=== PATIENT | male | born 1965 | race Caucasian/White ===

== ENCOUNTER 2021-11-17 14:43 | Inpatient (IN) ==
[2021-11-17] MEDS ORDERED: VANCOMYCIN HCL 1,500 MG in SODIUM CHLORIDE 0.9% 500 ML IV STA (15:12)
[2021-11-17] MEDS ORDERED: VANCOMYCIN CONSULT ACTIVE PRN (15:12)
--- NOTE | 2021-11-17 15:18 | Emergency Department Note ---
History of Present Illness General Chief complaint: Infection Stated complaint: INFECTION IN LEFT FOOT,REF BY DOC Time Seen by Provider: 11/17/21 15:08 Source: patient History of Present Illness 56-year-old male presents emergency department referred by Dr. Hall for admission for a operation to his left foot this evening. Reportedly the patient has been dealing with a foot infection was recently at [facility]. Patient is currently on Keflex. Patient was seen in Dr. Hall's office and sent for admission for surgery this evening. Patient has no other complaints at this time Home Medications Medication Instructions Recorded Confirmed Type benazepril 10 mg tablet 10 mg PO DAILY 11/17/21 11/17/21 History cephalexin 500 mg capsule 500 mg PO QID 11/17/21 11/17/21 History insulin aspart U-100 100 unit/mL 7 unit SUBCUT TID 11/17/21 11/17/21 History (3 mL) subcutaneous pen liraglutide 0.6 mg/0.1 mL (18 mg/3 1.2 mg SUBCUT DAILY 11/17/21 11/17/21 History mL) subcutaneous pen injector (ArQuletoza 2-Ozzy) Allergies Allergy/AdvReac Type Severity Reaction Status Date / Time amoxicillin [From Augmentin] Allergy Intermediate face Verified 11/17/21 15:16 swelling atorvastatin [From Lipitor] Allergy Intermediate Rash Verified 11/17/21 15:16 clavulanic acid Allergy Intermediate face Verified 11/17/21 15:16 [From Augmentin] swelling empagliflozin Allergy Intermediate Rash Verified 11/17/21 15:16 [From Jardiance] latex Allergy Mild Rash Verified 11/17/21 15:16 ciprofloxacin [From Cipro] AdvReac Severe Gastrointestinal Verified 11/17/21 15:16 Upset aspirin AdvReac Intermediate epistaxis Verified 11/17/21 15:16 Past Med/Surg History Social History Smoking Status: Never smoker Preferred Language: Greenlandic Feels Safe at Home: Yes Immunizations: Past medical history diabetes, 6 BKA, left transmet, osteomyelitis, foot infection Review of Systems A total of 10 systems reviewed and were otherwise negative Constitutional: no fever Respiratory: no cough Musculoskeletal: + joint pain Physical Exam Vital Signs Vital Signs - 24 hr 11/17/21 14:50 11/17/21 15:12 Temperature 37.1 C Temperature Source Temporal Artery Scan Pulse Rate 83 Pulse Rate [Right Finger] 80 Pulse Rhythm [Right Finger] Regular Pulse Strength [Right Finger] Normal Respiratory Rate 18 16 Respiratory Effort / Characteristics Non-Labored Respiratory Depth Normal Respiratory Pattern Regular Blood Pressure 144/84 H Blood Pressure [Right Arm] 141/85 H Blood Pressure Mean 104 Blood Pressure Mean [Right Arm] 103 Blood Pressure Position Sitting Blood Pressure Position [Right Arm] Lying Pulse Oximetry 96 97 Oxygen Delivery Method Room Air Room Air Sepsis Recent Fever Within 48 Hours No Sepsis New/Unexplained Change in Mental Status No Sepsis Action Taken by Nursing No Action Required VITAL SIGNS - Vital signs and nursing notes were reviewed. GENERAL -56-year-old male appearing his stated age who is in no acute distress. Communicates well with provider and answers questions appropriately. SKIN - Without rashes. HEAD - NC/AT. EYES - PERRL with EOMI bilaterally. Sclera anicteric. Palpebral conjunctiva pink and moist with no injection noted. EARS - No deformities of external structures noted on gross examination bilaterally. NOSE - Midline and without cyanosis. No epistaxis or purulent drainage noted. Septum midline without deviation or septal hematoma noted. MOUTH/OROPHARYNX - Without perioral cyanosis. Buccal mucosa pink and moist . Tongue midline with equal elevation of palate bilaterally. No tonsillar hypertrophy, erythema, or exudates noted. NECK - Neck with FROM. Supple to palpation. LUNGS - Chest wall symmetric without accessory muscle use, intercostals retractions, or central cyanosis. Normal vesicular breath sounds CTA B/L. No wheezes, rales, or rhonchi appreciated. CARDIAC - RRR with S1/S2. No murmur, rubs, or gallops appreciated. ABDOMEN - Abdominal contour soft without pulsations or visible masses. BS normoactive all four quadrants. No tenderness, palpable masses, hepatosplenomegaly, or ascites noted. Back -kyphotic EXTREMITIES - No clubbing or peripheral cyanosis. Patient has a right BKA, patient has a left lower extremity at the foot that appears to have a transmet that is currently wrapped with a weeping bandage NEUROLOGIC - Cranial nerves II through XII grossly intact. Sensory intact to light touch throughout. Patellar reflexes +2/4. PSYCH - A&Ox3 and cooperates fully with examiner. Pt is very pleasant and interacts well with examiner. Course Reevaluation(s) Reevaluation #1: Patient on reexamination at 1645 was resting in no distress, patient was started on IV vancomycin, the case was discussed with [facility] hospitalist at 1705 for admission Administered Medications Vancomycin HCl 1,500 mg/ (Sodium Chloride) 530 mls @ 200 mls/hr IV NOW STA Stop: 11/17/21 17:41 Last Admin: 11/17/21 16:45 Dose: 200 mls/hr Documented by: [id number] Medical Decision Making Medical Records Attestation: I reviewed the patient's medical records. Home Medications Current Medication List: was personally reviewed by me Laboratory Data Attestation: I reviewed the patient's lab results. Result diagrams: 11/17/21 16:18 11/17/21 16:18 Lab Results 11/17/21 11/17/21 11/17/21 Range/Units 16:18 16:18 16:18 WBC 7.62 (4.8-10.8) K/uL RBC 5.33 (4.7-6.1) M/uL Hgb 15.6 (14.0-18.0) g/dL Hct 46.2 (42-52) % MCV 86.7 (80-100) fL MCH 29.3 (25-34) pg MCHC 33.8 (32-36) g/dL RDW Std Deviation 41.9 (36.4-46.3) fL RDW Coeff of Virgilio 13.1 (11.5-14.5) % Plt Count 366 (130-400) K/uL MPV 9.9 (7.4-10.4) fL Immature Gran % (Auto) 0.5 % Neut % (Auto) 64.4 % Lymph % (Auto) 23.4 % Bent % (Auto) 8.9 % Eos % (Auto) 2.5 % Baso % (Auto) 0.3 % Neut # (Auto) 4.91 (1.4-6.5) K/uL Lymph # (Auto) 1.78 (1.2-3.4) K/uL Bent # (Auto) 0.68 H (0.11-0.59) K/uL Eos # (Auto) 0.19 (0-0.5) K/uL Baso # (Auto) 0.02 (0-0.2) K/uL Immature Gran # (Auto) 0.04 H (0.00-0.02) K/uL PT 10.8 (9.0-12.0) Seconds INR 1.0 (0.9-1.1) APTT 34.3 H (21.0-31.0) Seconds PTT Ratio 1.2 Sodium 132 L (136-145) mmol/L Potassium 4.8 (3.5-5.1) mmol/L Chloride 99 (98-107) mmol/L Carbon Dioxide 25 (21-32) mmol/L Anion Gap 8 (3-11) BUN 22 (6-23) mg/dl Creatinine 0.81 (0.6-1.4) mg/dl Est Cr Clr Drug Dosing 124.6 ml/min Est GFR ( Amer) 116.8 ml/min Est GFR (Non-Af Amer) 100.8 ml/min BUN/Creatinine Ratio 27.2 H (10-20) Glucose 340 H* (70-99(Fasting)) mg/dl Lactate (0.4-2.0) mmol/L Calcium 9.2 (8.5-10.1) mg/dl Magnesium 1.9 (1.7-2.4) mg/dl Total Bilirubin 0.5 (0.2-1.0) mg/dl AST 10 L (13-39) U/L ALT 7 (7-52) U/L Alkaline Phosphatase 92 (34-104) U/L Total Protein 7.5 (6.0-8.3) gm/dl Albumin 3.7 (3.4-5.0) gm/dl Globulin 3.8 (2.5-4.0) gm/dl Albumin/Globulin Ratio 1.0 (0.9-2) SARS-CoV-2, RNA, NAAT (NEGATIVE) 11/17/21 11/17/21 Range/Units 16:29 16:55 WBC (4.8-10.8) K/uL RBC (4.7-6.1) M/uL Hgb (14.0-18.0) g/dL Hct (42-52) % MCV (80-100) fL MCH (25-34) pg MCHC (32-36) g/dL RDW Std Deviation (36.4-46.3) fL RDW Coeff of Virgilio (11.5-14.5) % Plt Count (130-400) K/uL MPV (7.4-10.4) fL Immature Gran % (Auto) % Neut % (Auto) % Lymph % (Auto) % Bent % (Auto) % Eos % (Auto) % Baso % (Auto) % Neut # (Auto) (1.4-6.5) K/uL Lymph # (Auto) (1.2-3.4) K/uL Bent # (Auto) (0.11-0.59) K/uL Eos # (Auto) (0-0.5) K/uL Baso # (Auto) (0-0.2) K/uL Immature Gran # (Auto) (0.00-0.02) K/uL PT (9.0-12.0) Seconds INR (0.9-1.1) APTT (21.0-31.0) Seconds PTT Ratio Sodium (136-145) mmol/L Potassium (3.5-5.1) mmol/L Chloride (98-107) mmol/L Carbon Dioxide (21-32) mmol/L Anion Gap (3-11) BUN (6-23) mg/dl Creatinine (0.6-1.4) mg/dl Est Cr Clr Drug Dosing ml/min Est GFR ( Amer) ml/min Est GFR (Non-Af Amer) ml/min BUN/Creatinine Ratio (10-20) Glucose (70-99(Fasting)) mg/dl Lactate 1.4 (0.4-2.0) mmol/L Calcium (8.5-10.1) mg/dl Magnesium (1.7-2.4) mg/dl Total Bilirubin (0.2-1.0) mg/dl AST (13-39) U/L ALT (7-52) U/L Alkaline Phosphatase (34-104) U/L Total Protein (6.0-8.3) gm/dl Albumin (3.4-5.0) gm/dl Globulin (2.5-4.0) gm/dl Albumin/Globulin Ratio (0.9-2) SARS-CoV-2, RNA, NAAT NEGATIVE (NEGATIVE) Imaging Data Radiologist's Impression: Chest X-Ray 11/17/21 15:12 XR chest 1V portable HISTORY: 56 years-old Male SEPSIS acute sepsis COMPARISON: None TECHNIQUE: Portable AP view of the chest FINDINGS: The cardiomediastinal and hilar silhouettes are within normal limits. There is no pneumothorax, pleural effusion, airspace consolidation or overt pulmonary edema. The bones of the chest appear grossly intact. IMPRESSION: No acute process. ACT 112: Negative or not required by law. The above report was generated using voice recognition software. It may contain grammatical, syntax or spelling errors. Electronically signed by: Alonzo Martines M.D. 11/17/2021 4:43 PM ECG Data Attestation: I personally reviewed and interpreted this ECG as follows: Additional Comments: EKG interpreted by me normal sinus rhythm rate of 81 degree AV block no obvious ST segment elevation or depression normal intervals normal axis MDM Narrative Medical decision making differential diagnosis includes osteomyelitis, cellulitis, abscess, metabolic derangement. Plan is to check labs, IV antibiotics, admit Impression & Plan Diabetic infection of left foot, Acute hyperglycemia Discharge Plan Visit Data Chief Complaint: Infection Stated Complaint: INFECTION IN LEFT FOOT,REF BY DOC ED Provider: Trace Keller Discharge Problem: Diabetic infection of left foot, Acute hyperglycemia Patient Disposition: Being Evaluated by Hospitalist Forms Stand Alone Forms: My [facility] 3D Inspection Prescriptions Prescriptions: No Action benazepril 10 mg tablet 10 mg PO DAILY RF: 0 insulin aspart U-100 100 unit/mL (3 mL) insulin pen 7 unit SUBCUT TID RF: 0 Victoza 2-Ozzy 0.6 mg/0.1 mL (18 mg/3 mL) pen injector 1.2 mg SUBCUT DAILY RF: 0 cephalexin 500 mg capsule 500 mg PO QID RF: 0 Referrals Referrals: Sherman Waldron D.O. [Primary Care Provider] -
--- NOTE | 2021-11-17 16:45 | XRay Report ---
XR chest 1V portable HISTORY: 56 years-old Male SEPSIS acute sepsis COMPARISON: None TECHNIQUE: Portable AP view of the chest FINDINGS: The cardiomediastinal and hilar silhouettes are within normal limits. There is no pneumothorax, pleur al effusion, airspace consolidation or overt pulmonary edema. The bones of the chest appear grossly i ntact. IMPRESSION: No acute process. ACT 112: Negative or not required by law. The above report was generated using voice recognition software. It may contain grammatical, syntax o r spelling errors. Electronically signed by: Alonzo Martines M.D. 11/17/2021 4:43 PM
[2021-11-17 16:46] LABS: Basophils # (auto) 0.02 K/uL (0-0.2); Basophils % (auto) 0.3 %; Eosinophils # (auto) 0.19 K/uL (0-0.5); Eosinophils % (auto) 2.5 %; Hematocrit (blood only) 46.2 % (42-52); Hemoglobin 15.6 g/dL (14.0-18.0); Immature Granulocytes # (auto) 0.04 K/uL (0.00-0.02); Immature Granulocytes % (auto) 0.5 %; Lymphocytes # (auto) 1.78 K/uL (1.2-3.4); Lymphocytes % (auto) 23.4 %; Mean Corpuscular Hemoglobin 29.3 pg (25-34); Mean Corpuscular Hgb Conc 33.8 g/dL (32-36); Mean Corpuscular Volume 86.7 fL (80-100); Mean Platelet Volume 9.9 fL (7.4-10.4); Monocytes # (auto) 0.68 K/uL (0.11-0.59); Monocytes % (auto) 8.9 %; Neutrophils # (auto) 4.91 K/uL (1.4-6.5); Neutrophils % (auto) 64.4 %; Platelet Count 366 K/uL (130-400); RDW Coefficient of Variation 13.1 % (11.5-14.5); RDW Standard Deviation 41.9 fL (36.4-46.3); Red Blood Count 5.33 M/uL (4.7-6.1); White Blood Count 7.62 K/uL (4.8-10.8)
[2021-11-17 16:55] LABS: Partial Thromboplastin Ratio 1.2; Partial Thromboplastin Time 34.3 Seconds (21.0-31.0); Prothrombin Time 10.8 Seconds (9.0-12.0)
[2021-11-17 17:13] LABS: Albumin Level 3.7 gm/dl (3.4-5.0); BUN Creatinine Ratio 27.2 (10-20); Bilirubin,Total 0.5 mg/dl (0.2-1.0); Calcium 9.2 mg/dl (8.5-10.1); Creatinine Clr Calc Pharmacy 124.6 ml/min; Est GFR (African American) 116.8 ml/min; Est GFR (Non-African American) 100.8 ml/min; Globulin 3.8 gm/dl (2.5-4.0); Magnesium 1.9 mg/dl (1.7-2.4); Potassium 4.8 mmol/L (3.5-5.1); Total Protein 7.5 gm/dl (6.0-8.3)
[2021-11-17] MEDS ORDERED: ONDANSETRON INJ 2 MG/ML 2 ML VIAL ONE (17:18)
[2021-11-17] MEDS ORDERED: PROPOFOL IV EMULSION 10 MG/ML 20 ML VIAL IV ONE ×5 (17:18→19:08)
[2021-11-17] MEDS ORDERED: fentaNYL citrate 100 MCG/2 ML VIAL ONE (17:18)
[2021-11-17] MEDS ORDERED: NovoLIN-R INSULIN PER UNIT CHARGE IV STA (17:22)
--- NOTE | 2021-11-17 17:25 | History & Physical Report ---
Date of Service November 17, 2021 Assessment & Plan (1) Diabetic infection of left foot: Plan: Diabetic foot infection with osteo- Patient seen and previously treated at [facility]. Pending records. Reportedly was discharged on Keflex with continued worsening of his infection Worsening DFI with osteo-, allergies to Augmentin. Placed on Rocephin, Flagyl, and Vanco empirically. Anticipate operative intervention by podiatry today blood cultures pending No leukocytosis Hemoglobin 15.6 PLT 366 Sodium 132, glucose 340 in ER Lactate normal Creatinine 0.81, creatinine clearance 124 No transaminitis CRP 2.59 Covid negative Chest x-ray: No acute process Left foot x-ray: Prior forefoot amputation. Soft tissue ulcer of the lateral forefoot noted in conjunction with osteomyelitis involving cuboid and residual fourth metatarsal base. Patient was referred by Dr. Hall who is consulted for operative intervention anticipate intervention today (2) Diabetes mellitus type 2 with complications, uncontrolled: Plan: Type 2 diabetes mellitus On liraglutide and Takes lantus 18u + 7-10u aspart TID at home Hold home Victoza Basal bolus SSI. Basal 9 units Lantus bid, SSI CF 45, ratio 15 Glucose checks AC/at bedtime 5 units IV insulin given in ER for blood sugar over 400 while in ER. Patient about to be taken to the OR, OR nurse notified insulin given shortly before tr ansfer. (3) HLD (hyperlipidemia): Plan: - Continue crestor 40mg daily (4) HTN (hypertension): Plan: Hold Benzapril for interaction with anesthesia, may resume tomorrow hold for hypotension (5) Legal blindness of left eye, as defined in [place]: Plan: Congenital diminished acuity in left eye since , does react to light. No acute intervention for this. This is not due to diabetic retinopathy. Plan: DVT prophylaxis: SCDs, defer pharmacologic prophylaxis in anticipation of surgically Diet: N.p.o., then type II diabetic Disposition: Medical surgical CODE STATUS: DNR/DNI, confirmed with patient. Surrogate decision maker would be his History of Present Illness Primary Care Provider: Sherman Crys Waldron Chet is a 56-year-old male with a past medical history of diabetes who is been referred from podiatry Dr. Hall for admission for worsened left foot cellulitis with osteomyelitis which has not improved with antibiotic therapy and which is anticipated to need surgical revision. 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 In ER troponin is negative, chest x-ray is negative. "I have an infection in my foot. Dr. Hall seen me and wanted to come over so he could do some debridement of the bone." Infection started 2 weeks ago, seen in [facility] and d/c 4 days ago. He is not sure if they had a culture result, but was discharged on Keflex. After he was discharged did not notice any change in the foot. Did not have diabetic shoes available. No fevers, chills or sweats. Had gotten flushed with vanco and low grade fever in the past. none [employer]. No shortness of breath, no chest pain,or chest pressure. Hungry, no n ausea, no vomiting. Blind in L eye since . HTN on Benzepril. HLD: Crestor 40mg daily DM: Takes lantus 18u + 7-10u aspart TID A1C 9.9% in Sep 2021. Dr. Mindy Loera is normal ring facer. Medical History: Reviewed Medications: Reviewed Surgical History: Reviewed Allergies: Reviewed Social History: No tobacco product use in 16 years. Social alcohol on holidays. Recreational marijuana in the past, none recent. Uses CBD cream for arthritis. Code Status: Surrogate DM would be Mira. DNR/DNI. R BKA Mar 2007. Cataract sx, tonsillectomy. Allergies Allergy/AdvReac Type Severity Reaction Status Date / Time amoxicillin [From Augmentin] Allergy Intermediate face Verified 11/17/21 15:16 swelling atorvastatin [From Lipitor] Allergy Intermediate Rash Verified 11/17/21 15:16 clavulanic acid Allergy Intermediate face Verified 11/17/21 15:16 [From Augmentin] swelling empagliflozin Allergy Intermediate Rash Verified 11/17/21 15:16 [From Jardiance] latex Allergy Mild Rash Verified 11/17/21 15:16 ciprofloxacin [From Cipro] AdvReac Severe Gastrointestinal Verified 11/17/21 15:16 Upset aspirin AdvReac Intermediate epistaxis Verified 11/17/21 15:16 Home Medications Medication Instructions Recorded Confirmed Type benazepril 10 mg tablet 10 mg PO DAILY 11/17/21 11/17/21 History cephalexin 500 mg capsule 500 mg PO QID 11/17/21 11/17/21 History insulin aspart U-100 100 unit/mL 7 unit SUBCUT TID 11/17/21 11/17/21 History (3 mL) subcutaneous pen liraglutide 0.6 mg/0.1 mL (18 mg/3 1.2 mg SUBCUT DAILY 11/17/21 11/17/21 History mL) subcutaneous pen injector (Victoza 2-Ozzy) Past Med/Surg History Medical History (Updated 11/17/21 @ 17:56 by Oral Chauhan MD) Diabetes mellitus type 2 with complications, uncontrolled HLD (hyperlipidemia) HTN (hypertension) Legal blindness of left eye, as defined in [place] Surgical History History of tonsillectomy Social History Smoking Status: Never smoker Preferred Language: Romanian Feels Safe at Home: Yes Review of Systems 2 Review of Systems: All systems reviewed & are unremarkable except as noted in Subjective Physical Exam Physical Exam: General: A&Ox3. NAD. Cooperative. HEENT: Atraumatic, normocephalic. Vision intact in right eye, only able to perceive light and shadows and some color in left eye. Both pupils reactive to light. Hearing intact. Pulm: CTAB A&P. -wheezes, -rales, -rhonchi. Symmetrical chest rise. No increased work of breathing. No respiratory distress. Cardiac: RRR, -mrg. Radial pulses intact and symmetrical. Abdominal: Nontender, nondistended, soft. BS present. Ext: R BKA L metatarsal amp. L lateral ulceration, minimal erythema + purulence. Base surrounding edema. Sensation intact to soft touch in left ankle and below right knee. Blasting Entryman strength intact bilaterally. Sensation intact to soft touch in hands bilaterally. Results & Data Results & Data ([facility]) Vital Signs (Past 12 Hours) Vital Signs Temp Pulse Pulse Resp BP BP Pulse Ox 11/17/21 15:12 80 16 141/85 H 97 11/17/21 14:50 37.1 C 83 18 144/84 H 96 PG Care Time/CCT Total # of Minutes Spent Total Time Spent with Patient: Total time spent is greater than 50% in coordination of care (as documented) at patient's floor/unit and/or counseling patient: Coding Level of Care Code 79075 Initial Inpt Care Lvl 3 Diagnoses HLD (hyperlipidemia) E78.5 Diabetes mellitus type 2 with complications, uncontrolled HTN (hypertension) I10 Legal blindness of left eye, as defined in [place] H54.8 Diabetic infection of left foot E11.628; L08.9
--- NOTE | 2021-11-17 18:12 | Anesthesiology Consultation ---
Date of Service November 17, 2021 Assessment & Plan Chart Review Chart Review: Acceptable Risk for Surgery Consults Requested none History Surgery Operation Date: 11/17/21 18:05 Proposed Procedures p Incision and Drainage of Left Foot - Kleber Hall DPM, MS Height/Weight Height: 6 ft 3 in Weight: 97.7 kg Allergies Allergy/AdvReac Type Severity Reaction Status Date / Time amoxicillin [From Augmentin] Allergy Intermediate face Verified 11/17/21 15:16 swelling atorvastatin [From Lipitor] Allergy Intermediate Rash Verified 11/17/21 15:16 clavulanic acid Allergy Intermediate face Verified 11/17/21 15:16 [From Augmentin] swelling empagliflozin Allergy Intermediate Rash Verified 11/17/21 15:16 [From Jardiance] latex Allergy Mild Rash Verified 11/17/21 15:16 ciprofloxacin [From Cipro] AdvReac Severe Gastrointestinal Verified 11/17/21 15:16 Upset aspirin AdvReac Intermediate epistaxis Verified 11/17/21 15:16 Medications Home Medications Medication Instructions Recorded Confirmed Last Taken benazepril 10 mg tablet 10 mg PO DAILY 11/17/21 11/17/21 11/17/21 10:00 cephalexin 500 mg capsule 500 mg PO QID 11/17/21 11/17/21 11/17/21 10:00 1st dose of day insulin aspart U-100 100 unit/mL 7 - 10 unit SUBCUT TIDM 11/17/21 11/17/21 11/17/21 (3 mL) subcutaneous pen insulin glargine 100 unit/mL (3 18 unit SUBCUT DAILY 11/17/21 11/17/21 Unknown mL) subcutaneous pen (Lantus Solostar U-100 Insulin) liraglutide 0.6 mg/0.1 mL (18 mg/3 1.2 mg SUBCUT DAILY 11/17/21 11/17/21 10:00 mL) subcutaneous pen injector (Victoza 2-Ozzy) rosuvastatin 40 mg tablet (Crestor) 40 mg PO QAM 11/17/21 11/17/21 Unknown Past Medical History Medical History (Updated 11/17/21 @ 17:56 by Oral Chauhan MD) Diabetes mellitus type 2 with complications, uncontrolled HLD (hyperlipidemia) HTN (hypertension) Legal blindness of left eye, as defined in [place] Past Surgical History Surgical History History of tonsillectomy Social History Smoking Status: Never smoker Physical Exam Vital Signs Last Vital Signs Temp 37.0 C 11/17/21 17:51 Pulse 82 11/17/21 17:51 Resp 18 11/17/21 17:51 BP 145/81 H 11/17/21 17:51 Pulse Ox 98 11/17/21 17:51 Testing Laboratory Results 11/17/21 16:18 11/17/21 16:18 PT 10.8 Seconds (9.0-12.0) 11/17/21 16:18 INR 1.0 (0.9-1.1) 11/17/21 16:18 APTT 34.3 Seconds (21.0-31.0) H 11/17/21 16:18
[2021-11-17] MEDS ORDERED: fentaNYL citrate 100 MCG/2 ML VIAL IV PRN (18:18)
[2021-11-17] MEDS ORDERED: PROMETHAZINE HCL 12.5 MG in SODIUM CHLORIDE 0.9% 50 ML IV PRN (18:18)
[2021-11-17] MEDS ORDERED: HYDROmorphone INJ 2 MG/ML SYR/VIAL IV PRN (18:18)
[2021-11-17] MEDS ORDERED: ATROPINE SULFATE 0.1 MG/ML 10ML SYR IV PRN (18:18)
[2021-11-17] MEDS ORDERED: ePHEDrine sulfate 50 MG/ML AMP IV PRN (18:18)
[2021-11-17] MEDS ORDERED: ONDANSETRON INJ 2 MG/ML 2 ML VIAL IV PRN (18:18)
--- NOTE | 2021-11-17 18:33 | History & Physical Bridge Note ---
Date of Service November 17, 2021 History & Physical Bridge Note I have examined the patient, reviewed the History & Physical and in the interval since the performance of the History & Physical I have noted the following changes of clinical significance: no changes noted
[2021-11-17] MEDS ORDERED: MIDAZOLAM HCL 1 MG/ML 2ML VIAL ONE ×2 (18:43→19:07)
[2021-11-17] MEDS ORDERED: VANCOMYCIN HCL 1000MG/20ML VIAL ONE (19:04)
[2021-11-17] MEDS ORDERED: GENTAMICIN SULFATE 40 MG/ML 2 ML VIAL ONE (19:04)
--- NOTE | 2021-11-17 19:49 | Post Operative Brief Note ---
Immediate Post Op Note v1 Date of Surgery November 17, 2021 Pre & Post Diagnosis Operation Date: 11/17/21 18:05 Pre-Op Diagnosis: INFECTION IN LEFT FOOT,REF BY DOC I identified the patient and participated in the time-out.: Yes Procedure Operation Date: 11/17/21 18:05 Actual Procedures p Incision and Drainage of Left Foot - Kleber Hall DPM, MS Surgeon Kleber Hall DPM, MS Racing Board Marker None Estimated Blood Loss 5 Findings Consistent with Post-Op Diagnosis necrotic bone left foot
--- NOTE | 2021-11-17 19:51 | Surgery Consultation ---
Date of Consultation November 17, 2021 Assessment & Plan (1) Diabetic infection of left foot: Patient seen, evaluated and treated. I reviewed immediate OR wound debridement of non viable bone and soft tissue. Patient would benefit from Vascular consult and ID consult. Thank you for allowing me to participate in this Patient's care. History of Present Illness Attending Physician: Kleber Hall, SHAHIDAM, MS History of Present Illness Patient is a type II diabetic, 56-year-old male who was referred to be by [facility] orthopedics for attempted limb salvage. Patient has history of right BKA and worsening left foot cellulitis with osteomyelitis which has not improved with out patient antibiotic therapy. Allergies Allergy/AdvReac Type Severity Reaction Status Date / Time amoxicillin [From Augmentin] Allergy Intermediate face Verified 11/17/21 15:16 swelling atorvastatin [From Lipitor] Allergy Intermediate Rash Verified 11/17/21 15:16 clavulanic acid Allergy Intermediate face Verified 11/17/21 15:16 [From Augmentin] swelling empagliflozin Allergy Intermediate Rash Verified 11/17/21 15:16 [From Jardiance] latex Allergy Mild Rash Verified 11/17/21 15:16 ciprofloxacin [From Cipro] AdvReac Severe Gastrointestinal Verified 11/17/21 15:16 Upset aspirin AdvReac Intermediate epistaxis Verified 11/17/21 15:16 Home Medications Medication Instructions Recorded Confirmed Type benazepril 10 mg tablet 10 mg PO DAILY 11/17/21 11/17/21 History cephalexin 500 mg capsule 500 mg PO QID 11/17/21 11/17/21 History insulin aspart U-100 100 unit/mL 7 - 10 unit SUBCUT TIDM 11/17/21 11/17/21 History (3 mL) subcutaneous pen insulin glargine 100 unit/mL (3 18 unit SUBCUT DAILY 11/17/21 11/17/21 History mL) subcutaneous pen (Lantus Solostar U-100 Insulin) liraglutide 0.6 mg/0.1 mL (18 mg/3 1.2 mg SUBCUT DAILY 11/17/21 11/17/21 History mL) subcutaneous pen injector (Victoza 2-Ozzy) rosuvastatin 40 mg tablet (Crestor) 40 mg PO QAM 11/17/21 11/17/21 History Patient History Medical History (Updated 11/17/21 @ 17:56 by Oral Chauhan MD) Diabetes mellitus type 2 with complications, uncontrolled HLD (hyperlipidemia) HTN (hypertension) Legal blindness of left eye, as defined in [place] Surgical History History of tonsillectomy Social History Smoking Status: Never smoker Preferred Language: French Feels Safe at Home: Yes Physical Exam Physical Exam: General: A&Ox3. NAD. Cooperative. HEENT: Atraumatic, normocephalic. Vision intact in right eye, only able to perceive light and shadows and some color in left eye. Both pupils reactive to light. Hearing intact. Pulm: CTAB A&P. -wheezes, -rales, -rhonchi. Symmetrical chest rise. No increased work of breathing. No respiratory distress. Cardiac: RRR, -mrg. Radial pulses intact and symmetrical. Abdominal: Nontender, nondistended, soft. BS present. Ext: R BKA L metatarsal amp. L lateral ulceration, minimal erythema + purulence. Base surrounding edema. Sensation intact to soft touch in left ankle and below right knee. Mixer Tender strength intact bilaterally. Sensation intact to soft touch in hands bilaterally. Results & Data ([facility]) Vital Signs (Past 12 Hours) Vital Signs Temp Pulse Pulse Resp BP BP Pulse Ox 11/17/21 17:51 37.0 C 82 18 145/81 H 98 11/17/21 17:50 36.9 C 84 19 145/87 H 99 11/17/21 15:12 80 16 141/85 H 97 11/17/21 14:50 37.1 C 83 18 144/84 H 96 Diagnostic Findings Reviewed previous MRI read showing possible Left cubiod, 3rd metatarsal, 4th metatarsal, lateral calcaneus, Osteomyelitis. Possible septic tibiotalar and subtalar joints.
--- NOTE | 2021-11-17 20:14 | Anesthesiology Progress Note ---
Date of Service November 17, 2021 Anesthesia Post Procedure Vital Signs Vital Signs: Temp Pulse Pulse Pulse Resp BP BP 11/17/21 20:03 80 16 122/71 11/17/21 19:53 36.0 C L 75 18 120/85 11/17/21 17:51 37.0 C 82 18 145/81 H 11/17/21 17:50 36.9 C 84 19 145/87 H 11/17/21 15:12 80 16 141/85 H 11/17/21 14:50 37.1 C 83 18 144/84 H Pulse Ox 11/17/21 20:03 99 11/17/21 19:53 97 11/17/21 17:51 98 11/17/21 17:50 99 11/17/21 15:12 97 11/17/21 14:50 96 Transfer of Care Handoff Completed per policy Notes Mental Status: alert / awake / arousable and participated in evaluation Patient Amnestic to Procedure: Yes Nausea / Vomiting: adequately controlled Pain: adequately controlled Airway Patency, RR, SpO2: stable & adequate BP & HR: stable & adequate Hydration State: stable & adequate Anesthetic Complications: no major complications apparent
[2021-11-17] MEDS ORDERED: GLUCOSE 40% GEL 15 GM TUBE PO PRN (20:25)
[2021-11-17] MEDS ORDERED: POLYETHYLENE (MIRALAX) 17 GM PACK PO PRN (20:25)
[2021-11-17] MEDS ORDERED: DEXTROSE 50% 50 ML SYRINGE IV PRN (20:25)
[2021-11-17] MEDS ORDERED: GLUCAGON FOR INJ 1 MG VIAL SQ PRN (20:25)
[2021-11-17] MEDS ORDERED: CARBOHYDRATES FOR HYPOGLYCEMIA PO PRN (20:25)
[2021-11-17] MEDS ORDERED: cefTRIAXone SODIUM 2,000 MG in DEXTROSE 5% 50 ML IV SCH (20:25)
[2021-11-17] MEDS ORDERED: GLUCOSE 10 TABS/TUBE PO PRN (20:25)
[2021-11-17] MEDS ORDERED: ACETAMINOPHEN 325 MG TAB PO PRN (20:25)
--- NOTE | 2021-11-17 21:39 | Pharmacy Report ---
Pharmacy Vanc AUC Short Note - Date of Service November 17, 2021 - Assessment & Plan Assessment 56 year old M receiving vancomycin/Rocephin/Flagyl for treatment of diabetic foot infection. Pertinent microbiologic data includes: N/A. Day # 1 of antimicrobial therapy. Plan Vancomycin * AUC/KARINA is the preferred PK/PD target for vancomycin * AUC guided dosing is effective and associated with decreased risk of nephrotoxicity compared to traditional trough targets * vancomycin 1500 mg IV q12 is predicted to achieve target AUC/KARINA of 400-600 mg/L.hr and may be associated with a 14 % risk of nephrotoxicity * Trough to be ordered Pharmacy will continue to follow and will adjust dose/frequency as necessary. Thank you.
--- NOTE | 2021-11-17 21:51 | Operative Report ---
Post Operative Report Pre & Post Diagnosis Operation Date: 11/17/21 18:05 Pre-Op Diagnosis: INFECTION IN LEFT FOOT,REF BY DOC I identified the patient and participated in the time-out.: Yes Procedure Operation Date: 11/17/21 18:05 Actual Procedures p Incision and Drainage of Left Foot - Kleber Hall, DPM, MS History of present illness: Patient is a 56-year-old male who is seen for attempted limb salvage, serial OR debridement of left foot diabetic ulcer with exposed necrotic bone. Procedure in detail was discussed as well as postoperative care. All questions were answered. All potential risks, benefits, complications, alternatives, rehab, potential for incomplete relief of symptoms, need for further surgery, DVT, PE, , persistent pain, swelling, scarring, weakness, neurovascular, wound complications and potential for amputations were discussed with patient. Unwanted outcomes such as, but not limited to were reviewed including under correction, overcorrection, return of deformity, infection. All questions were answered. Patient has decided to proceed with procedure as indicated. 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 Hall [employer] Worker: none Anesthesia: Local monitored anesthesia care Hemostasis: none Estimated blood loss: 5ml Specimens: 1.) Bone Cuboid Left Pathology 2.) Bone Cuboid Left Microbiology 3.) Deep culture swab Left foot 4.) Tibiotalar joint aspirate Left foot 5.) Subtalar joint aspirate Left foot Procedure in detail: Under mild sedation the patient was brought in the operating room placed on the operating table in supine position. Following sedation the foot and ankle were prepped scrubbed and draped in the usual aseptic manner. Attention was then directed to Left foot diabetic non healing wound with exposed necrotic bone. The wound measures roughly 8 cm x 8 cm x 4 cm. An excision utilizing a sharp, sterile, #15 blade of adjacent necrotic devitalized soft tissue. All bleeders were ligated and cauterized as necessary. An rongeur was utilized for resection of necrotic bone from the cuboid and 3rd metatarsal. A small piece of necrotic bone from cuboid was placed on the back table for specimen to be sent to both Micro and Pathology. Deep culture swab was taken. Utilizing a sharp, sterile, #15 blade necrotic tissue was excised from wound base down to and including free floating bone. Further bone from cuboid and 4th metatarsal was removed with rongeur. At this time the Versa Jet was utilized for additional soft tissue debridement removing remnants of devitalized tissue from wound bed and periwound. Lactate ringer was utilized to flush the wound. Stimulan beads containing Vancomycin and Gentamicin powder was placed directly over exposed healthy bleeding bone and soft tissue. Utilizing a 18 gauge need and 10cc syringe joint aspirate fluid was removed from tibiotalar joint and sent to micro. Utilizing a separate 18 gauge need and 10cc syringe joint aspirate fluid was removed from subtalar joint and sent to micro. The wound was left open and dressed with sterile compressive dressing consisting of adaptic, 4 x 4's Marty Kerlix ABD. The Patient tolerated procedure and anesthesia well he was transferred to recovery room vital signs stable and vascular status intact all toes of the left foot following. Following a period of postoperative monitoring the patient will be discharged back to floor on the following written and postoperative oral instructions. Keep dressing clean dry and intact, avoid ambulation, elevate left ankle and foot contact Dr. Hall for all postoperative care if any problems arise. Surgeon Kleber Hall, SHAHIDAM, MS [employer]otive T[employer] Worker None Estimated Blood Loss 5 Findings Consistent with Post-Op Diagnosis necrotic bone Specimens see operative note for full list Description of Procedure Procedure in detail: 1.) Incision and drainage 2.) Excision of necrotic bone and soft tissue 3.) Tibiotalar joint aspiration 4.) Subtalar Joint aspiration I attest to the content of the Intraoperative Record and any orders documented therein. Any exceptions are noted below.
[2021-11-17] MEDS: VANCOMYCIN HCL 1,500 MG in SODIUM CHLORIDE 0.9% 500 ML IV SCH (22:13)
[2021-11-17] MEDS: INSULIN ASPART PER UNIT SC SCH (22:14)
[2021-11-17] MEDS: metroNIDAZOLE 500 MG TAB PO SCH (22:15)
[2021-11-18 07:58] LABS: Basophils # (auto) 0.02 K/uL (0-0.2); Basophils % (auto) 0.2 %; Eosinophils # (auto) 0.35 K/uL (0-0.5); Eosinophils % (auto) 3.7 %; Hematocrit (blood only) 42.9 % (42-52); Hemoglobin 14.6 g/dL (14.0-18.0); Immature Granulocytes # (auto) 0.05 K/uL (0.00-0.02); Immature Granulocytes % (auto) 0.5 %; Lymphocytes # (auto) 0.68 K/uL (1.2-3.4); Lymphocytes % (auto) 7.3 %; Mean Corpuscular Hemoglobin 28.9 pg (25-34); Mean Platelet Volume 9.6 fL (7.4-10.4); Monocytes # (auto) 0.28 K/uL (0.11-0.59); Neutrophils # (auto) 7.97 K/uL (1.4-6.5); Neutrophils % (auto) 85.3 %; Platelet Count 334 K/uL (130-400); RDW Coefficient of Variation 13.2 % (11.5-14.5); RDW Standard Deviation 40.4 fL (36.4-46.3); Red Blood Count 5.05 M/uL (4.7-6.1); White Blood Count 9.35 K/uL (4.8-10.8)
[2021-11-18 08:18] LABS: BUN Creatinine Ratio 22.9 (10-20); Calcium 8.4 mg/dl (8.5-10.1); Creatinine Clr Calc Pharmacy 121.6 ml/min; Est GFR (African American) 115.6 ml/min; Est GFR (Non-African American) 99.8 ml/min; Potassium 4.9 mmol/L (3.5-5.1)
[2021-11-18] MEDS: INSULIN ASPART PER UNIT SC SCH ×5 (08:58→21:05)
[2021-11-18] MEDS ORDERED: ENALAPRIL MALEATE 10 MG TAB PO SCH (09:00)
[2021-11-18] MEDS: metroNIDAZOLE 500 MG TAB PO SCH ×3 (09:00→21:06)
[2021-11-18] MEDS ORDERED: BENAZEPRIL HCL 10 MG TAB PO SCH (09:00)
[2021-11-18] MEDS: ROSUVASTATIN CALCIUM 20 MG TAB PO SCH (09:00)
[2021-11-18] MEDS ORDERED: INSULIN GLARGINE SOLOSTAR 100 UNITS/ML 3 ML PEN SC SCH ×2 (09:00→21:00)
--- NOTE | 2021-11-18 11:44 | Hospitalist Progress Note ---
Date of Service November 18, 2021 Assessment & Plan (1) Diabetic infection of left foot: Plan: Diabetic foot infection with osteo- Patient seen and previously treated at [facility]. Pending records. Reportedly was discharged on Keflex with continued worsening of his infection Worsening DFI with osteo-, allergies to Augmentin. Placed on Rocephin, Flagyl, and Vanco empirically. Anticipate operative intervention by podiatry today blood cultures pending Reportedly already had vascular workup at [place] per patient however paper notes not in chart - presumably with HIM pending scanned in. Will confirm this tomorrow and may need vascular involvement if not already signed off. Consult ID per podiatry recommendations POD#1 Incision and drainage performed by Dr Hlal (2) Diabetes mellitus type 2 with complications, uncontrolled: Plan: Type 2 diabetes mellitus On liraglutide and Takes lantus 18u + 7-10u aspart TID at home Hold home Victoza Consult pharmacy for glycemic control - notably missed breakfast dose this morning (3) HLD (hyperlipidemia): Plan: - Continue crestor 40mg daily (4) HTN (hypertension): Plan: -Hold ACEi due to relatively low BP (5) Legal blindness of left eye, as defined in [place]: Plan: Congenital diminished acuity in left eye since , does react to light. No acute intervention for this. This is not due to diabetic retinopathy. Plan: DVT prophylaxis: SCDs, defer pharmacologic prophylaxis in anticipation of surgically Diet: N.p.o., then type II diabetic Disposition: Medical surgical CODE STATUS: DNR/DNI, confirmed with patient. Surrogate decision maker would be his Admission and Anticipated Discharge Date Admission Date: November 17, 2021 Subjective POD#1 surgical I&D. No fever or chills. Patient reports doing well with good appetite. Pain under control. Glucose levels > 200 since admission. > 300 for lunch as morning insulin dose was missed. Discussed care with Dr Hall. Review of Systems Review of Systems: All systems reviewed & are unremarkable except as noted in Subjective Physical Exam Constitutional: WD/WN, vitals as above Eyes: + anicteric sclerae; normal pupil size Respiratory: normal respiratory effort, lungs clear to auscultation Cardiovascular: RRR, no murmur, no edema Gastrointestinal (Abdomen): Inspection/Auscultation: normal bowel sounds Percussion/Palpation: abdomen soft; abdomen nontender, no guarding and abdomen not rigid Skin: no rashes, warm and dry (surgical dressing not removed but no surrounding cellulitis) Neurologic: moves all extremities and awake; not confused Psychiatric: A+Ox3, euthymic affect Results & Data Results & Data ([facility]) Vital Signs (Past 12 Hours) Vital Signs Temp Pulse Resp BP Pulse Ox 11/18/21 09:01 36.8 C 83 16 108/67 97 11/18/21 01:51 37.1 C 80 17 128/67 99 PG Care Time/CCT Total # of Minutes Spent Total Time Spent with Patient: Total time spent is greater than 50% in coordination of care (as documented) at patient's floor/unit and/or counseling patient: Coding Level of Care Code 22328 Subseq Hosp Care Lvl 2 Diagnoses Diabetic infection of left foot E11.628; L08.9 Diabetes mellitus type 2 with complications, uncontrolled HLD (hyperlipidemia) E78.5 HTN (hypertension) I10 Legal blindness of left eye, as defined in [place] H54.8
--- NOTE | 2021-11-18 11:57 | Electrocardiogram Report ---
Test Reason : Blood Pressure : / mmHG Vent. Rate : 081 BPM Atrial Rate : 081 BPM P-R Int : 260 ms QRS Dur : 104 ms QT Int : 382 ms P-R-T Axes : 045 -10 031 degrees QTc Int : 443 ms Sinus rhythm with 1st degree A-V block Otherwise normal ECG No previous ECGs available Confirmed by Nemesio Mcdermott ([id number]) on 11/18/2021 11:57:41 AM Referred By: Confirmed By:Sourav Mcdermott
[2021-11-18] MEDS: VANCOMYCIN HCL 1,500 MG in SODIUM CHLORIDE 0.9% 500 ML IV SCH ×2 (12:12→22:47)
[2021-11-18] MEDS ORDERED: PHARMACY GLYCEMIC MGMT CONSULT PRN (17:48)
--- NOTE | 2021-11-18 20:01 | Orthopedic Progress Note ---
Date of Service November 18, 2021 Assessment & Plan (1) Diabetic infection of left foot: Plan: Patient seen, evaluated, and treated. Reviewed previous MRI report. Awaiting final microbiology cultures. No growth from tibiotalar joint aspirate and subtalar joint aspirate in preliminary results. Demarcation of viable tissue noted at today's exam. Patient scheduled for continued excision of non viable bone and soft tissue 11/19/21. Will consider wound vac after this procedure. Patient would be best served admitted to [facility] down [facility] facility upon discharge from [facility]. This was discussed with Patient who has been to SNF in past, unfortunately during height of covid. He is reluctant to return but understands necessity and willing. Thank you for allowing me to participate in the care of this Patient. Admission and Anticipated Discharge Date Admission Date: November 17, 2021 Subjective Patient seen, status post 1 day left foot debridement, resting comfortably at bedside. He has no complaints. Physical Exam Physical Exam: Right BKA. Left foot shows open DFU with exposed bone and healthy bleeding. Decreased erythema and edema. Wound measures roughly 8 x 8 x 6 cm. Results & Data ([facility]) Vital Signs (Past 12 Hours) Vital Signs Temp Pulse Resp BP Pulse Ox 11/18/21 16:46 36.8 C 70 18 108/62 100 11/18/21 09:01 36.8 C 83 16 108/67 97 Laboratory Results Source Foot,Left Procedure/Result Gram Stain - Final Aerobic and Anaerobic Culture - Preliminary No growth to date. 11/17/21 19:32 Micro Wound Specimen Source Foot,Left Procedure/Result Gram Stain - Final Aerobic and Anaerobic Culture - Preliminary No growth to date. 11/17/21 19:32 Micro Wound Specimen Source Foot,Left Procedure/Result Gram Stain - Final Deep Wound Culture - Preliminary Gram negative bacilli 11/17/21 19:32 Micro Wound Specimen Source Foot,Left Procedure/Result Gram Stain - Final Aerobic and Anaerobic Culture - Preliminary No growth to date. 11/17/21 16:29 Micro Blood Specimen Source Blood Procedure/Result Aerobic Blood Culture - Preliminary No growth in Aerobic bottle after 24 hours. Anaerobic Blood Culture - Preliminary No growth in Anaerobic bottle after 24 hours.
[2021-11-18] MEDS ORDERED: cefTRIAXone SODIUM 2,000 MG in DEXTROSE 5% 50 ML IV SCH (22:00)
[2021-11-19] MEDS: INSULIN ASPART PER UNIT SC SCH ×5 (00:01→21:56)
--- NOTE | 2021-11-19 07:00 | Anesthesiology Consultation ---
Date of Service November 19, 2021 Assessment & Plan (1) Encounter for pre-operative examination: Chart Review Chart Review: Acceptable Risk for Surgery and Patient NOT seen in Pre Admission Testing Consults Requested none History Surgery Operation Date: 11/17/21 18:05 Proposed Procedures p Incision and Drainage of Left Foot - Kleber Hall DPM, Operation Date: 11/19/21 07:30 Proposed Procedures p Debridement(Left) - Kleber Hall DPM, MS Height/Weight Height: 6 ft 3 in Weight: 96.5 kg Allergies Allergy/AdvReac Type Severity Reaction Status Date / Time amoxicillin [From Augmentin] Allergy Intermediate face Verified 11/17/21 15:16 swelling atorvastatin [From Lipitor] Allergy Intermediate Rash Verified 11/17/21 15:16 clavulanic acid Allergy Intermediate face Verified 11/17/21 15:16 [From Augmentin] swelling empagliflozin Allergy Intermediate Rash Verified 11/17/21 15:16 [From Jardiance] latex Allergy Mild Rash Verified 11/17/21 15:16 ciprofloxacin [From Cipro] AdvReac Severe Gastrointestinal Verified 11/17/21 15:16 Upset aspirin AdvReac Intermediate epistaxis Verified 11/17/21 15:16 Medications Home Medications Medication Instructions Recorded Confirmed Last Taken benazepril 10 mg tablet 10 mg PO DAILY 11/17/21 11/17/21 11/17/21 10:00 cephalexin 500 mg capsule 500 mg PO QID 11/17/21 11/17/21 11/17/21 10:00 1st dose of day insulin aspart U-100 100 unit/mL 7 - 10 unit SUBCUT TIDM 11/17/21 11/17/21 11/17/21 (3 mL) subcutaneous pen insulin glargine 100 unit/mL (3 18 unit SUBCUT DAILY 11/17/21 11/17/21 Unknown mL) subcutaneous pen (Lantus Solostar U-100 Insulin) liraglutide 0.6 mg/0.1 mL (18 mg/3 1.2 mg SUBCUT DAILY 11/17/21 11/17/21 11/17/21 10:00 mL) subcutaneous pen injector (Victoza 2-Ozzy) rosuvastatin 40 mg tablet (Crestor) 40 mg PO QAM 11/17/21 11/17/21 Unknown Active Medications Generic Name Dose Route Start Last Admin Trade Name Freq PRN Reason Stop Dose Admin Enalapril Maleate 10 mg 11/18/21 09:00 11/18/21 09:00 Enalapril Maleate 10 Mg Tab PO 12/18/21 08:59 Not Given DAILY MEKA Vancomycin HCl 1,500 mg/ 530 mls @ 200 mls/hr 11/17/21 23:00 11/19/21 01:31 Sodium Chloride IV 12/29/21 22:59 Infused Q12H MEKA Infusion Ceftriaxone Sodium 2,000 mg/ 70 mls @ 100 mls/hr 11/18/21 22:00 11/18/21 22:47 Dextrose IV 12/29/21 21:59 Infused Q24H MEKA Infusion Protocol Insulin Aspart 0 units 11/19/21 00:00 11/19/21 06:20 Insulin Aspart Per Unit SC 12/19/21 00:00 Not Given Q6 MEKA Insulin Glargine 9 units 11/18/21 09:00 11/18/21 09:01 Insulin Glargine Solostar 100 Units/Ml 3 Ml Pen SC 12/18/21 08:59 9 units QAM MEKA Administration Insulin Glargine 9 units 11/18/21 21:00 11/18/21 21:06 Insulin Glargine Solostar 100 Units/Ml 3 Ml Pen SC 12/18/21 20:59 9 units HS MEKA Administration Metronidazole 500 mg 11/17/21 21:00 11/18/21 21:06 Metronidazole 500 Mg Tab PO 11/24/21 20:59 500 mg TID MEKA Administration Rosuvastatin Calcium 40 mg 11/18/21 09:00 11/18/21 09:00 Rosuvastatin Calcium 20 Mg Tab PO 12/18/21 08:59 40 mg QAM MEKA Administration NPO Date Last Intake of Fluids: 11/18/21 Time Last Intake of Fluids: 22:00 Date Last Intake of Solids: 11/18/21 Time Last Intake of Solids: 22:00 Past Medical History Medical History Diabetes mellitus type 2 with complications, uncontrolled HLD (hyperlipidemia) HTN (hypertension) Legal blindness of left eye, as defined in [place] Past Surgical History Surgical History History of tonsillectomy Social History Smoking Status: Former smoker Hx Alcohol Use: Yes Alcohol type: beer, wine and hard liquor alcohol intake frequency: holidays/special occasions only Hx Substance Use: No Physical Exam Vital Signs Last Vital Signs Temp 98.4 F 11/18/21 22:08 Pulse 73 11/18/21 22:08 Resp 18 11/18/21 22:08 BP 105/66 11/18/21 22:08 Pulse Ox 100 11/18/21 22:08 Testing Laboratory Results PT 10.8 Seconds (9.0-12.0) 11/17/21 16:18 INR 1.0 (0.9-1.1) 11/17/21 16:18 APTT 34.3 Seconds (21.0-31.0) H 11/17/21 16:18 11/17/21 16:18 Aerobic Blood Culture - Preliminary Blood No growth in Aerobic bottle after 24 hours. Anaerobic Blood Culture - Preliminary No growth in Anaerobic bottle after 24 hours. 11/17/21 16:29 Aerobic Blood Culture - Preliminary Blood No growth in Aerobic bottle after 24 hours. Anaerobic Blood Culture - Preliminary No growth in Anaerobic bottle after 24 hours. 11/17/21 19:32 Gram Stain - Final Foot,Left Aerobic and Anaerobic Culture - Preliminary No growth to date. 11/17/21 19:32 Gram Stain - Final Foot,Left Aerobic and Anaerobic Culture - Preliminary No growth to date. 11/17/21 19:32 Gram Stain - Final Foot,Left Aerobic and Anaerobic Culture - Preliminary No growth to date. 11/17/21 19:32 Gram Stain - Final Foot,Left Deep Wound Culture - Preliminary Gram negative bacilli 11/19/21 11/18/21 11/18/21 06:12 23:58 20:41 POC Glucose 116 H 113 H 216 H Electrocardiogram Date: 11/17/21 Findings: + NSR @ (1st degree AV block)
[2021-11-19] MEDS ORDERED: fentaNYL citrate 100 MCG/2 ML VIAL ONE (07:03)
[2021-11-19] MEDS ORDERED: PROPOFOL IV EMULSION 10 MG/ML 20 ML VIAL IV ONE ×2 (07:03→08:40)
[2021-11-19] MEDS ORDERED: MIDAZOLAM HCL 1 MG/ML 2ML VIAL ONE (07:03)
[2021-11-19] MEDS ORDERED: ONDANSETRON INJ 2 MG/ML 2 ML VIAL ONE (07:03)
[2021-11-19] MEDS ORDERED: LIDOCAINE 2% 2 ML VIAL/AMP(20MG/ML) INFIL ONE (07:03)
[2021-11-19 07:05] LABS: Basophils # (auto) 0.02 K/uL (0-0.2); Basophils % (auto) 0.4 %; Eosinophils # (auto) 0.35 K/uL (0-0.5); Eosinophils % (auto) 6.5 %; Hematocrit (blood only) 43.5 % (42-52); Hemoglobin 14.7 g/dL (14.0-18.0); Immature Granulocytes # (auto) 0.03 K/uL (0.00-0.02); Immature Granulocytes % (auto) 0.6 %; Lymphocytes % (auto) 20.6 %; Mean Corpuscular Hgb Conc 33.8 g/dL (32-36); Mean Corpuscular Volume 85.8 fL (80-100); Mean Platelet Volume 9.8 fL (7.4-10.4); Monocytes # (auto) 0.49 K/uL (0.11-0.59); Monocytes % (auto) 9.2 %; Neutrophils # (auto) 3.36 K/uL (1.4-6.5); Neutrophils % (auto) 62.7 %; Platelet Count 308 K/uL (130-400); RDW Coefficient of Variation 13.5 % (11.5-14.5); Red Blood Count 5.07 M/uL (4.7-6.1); White Blood Count 5.35 K/uL (4.8-10.8)
[2021-11-19] MEDS ORDERED: VANCOMYCIN HCL 1000MG/20ML VIAL ONE (07:19)
[2021-11-19 07:38] LABS: BUN Creatinine Ratio 24.7 (10-20); Calcium 8.6 mg/dl (8.5-10.1); Creatinine Clr Calc Pharmacy 131.1 ml/min; Est GFR (African American) 119.2 ml/min; Est GFR (Non-African American) 102.9 ml/min; Potassium 3.9 mmol/L (3.5-5.1)
--- NOTE | 2021-11-19 07:48 | History & Physical Bridge Note ---
Date of Service November 19, 2021 History & Physical Bridge Note I have examined the patient, reviewed the History & Physical and in the interval since the performance of the History & Physical I have noted the following changes of clinical significance: no changes noted
[2021-11-19] MEDS ORDERED: ONDANSETRON INJ 2 MG/ML 2 ML VIAL IV PRN (07:53)
[2021-11-19] MEDS ORDERED: fentaNYL citrate 100 MCG/2 ML VIAL IV PRN (07:53)
[2021-11-19] MEDS ORDERED: ATROPINE SULFATE 0.1 MG/ML 10ML SYR IV PRN (07:53)
[2021-11-19] MEDS ORDERED: ePHEDrine sulfate 50 MG/ML AMP IV PRN (07:53)
--- NOTE | 2021-11-19 09:02 | Post Operative Brief Note ---
Immediate Post Op Note v1 Date of Surgery November 19, 2021 Pre & Post Diagnosis Operation Date: 11/17/21 18:05 Pre-Op Diagnosis: INFECTION IN LEFT FOOT,REF BY DOC Operation Date: 11/19/21 07:30 Pre-Op Diagnosis: Diabetic infection of left foot Post-Op Diagnosis: Diabetic infection of left foot I identified the patient and participated in the time-out.: Yes Procedure Operation Date: 11/17/21 18:05 Actual Procedures p Incision and Drainage of Left Foot - Kleber Hall DPM, MS Operation Date: 11/19/21 07:30 Actual Procedures p Excision of Bone Left Foot, Delayed Primary Closure of Left Foot(Left) - Kleber Hall DPM, MS Surgeon Kleber Hall DPM, MS Specialties Operator None Estimated Blood Loss 5 Findings Consistent with Post-Op Diagnosis
--- NOTE | 2021-11-19 09:18 | Operative Report ---
Post Operative Report Pre & Post Diagnosis Operation Date: 11/17/21 18:05 Pre-Op Diagnosis: INFECTION IN LEFT FOOT,REF BY DOC Operation Date: 11/19/21 07:30 Pre-Op Diagnosis: Diabetic infection of left foot Post-Op Diagnosis: Diabetic infection of left foot I identified the patient and participated in the time-out.: Yes Procedure Operation Date: 11/17/21 18:05 Actual Procedures p Incision and Drainage of Left Foot - Kleber Hall DPM, MS Operation Date: 11/19/21 07:30 Actual Procedures p Excision of Bone Left Foot, Delayed Primary Closure of Left Foot(Left) - Kleber Hall DPM, MS Surgeon Kleber Hall DPM, MS Pulverizer Operator None Estimated Blood Loss 5 Findings Consistent with Post-Op Diagnosis non viable bone and soft tissue Specimens Micro - bone from left foot cuboid Pathology - bone from left foot cuboid, lateral cuneiform, and 3rd metatarsal. Description of Procedure History of present illness: Patient is a 56-year-old male who is seen for attempted limb salvage, excision of bone left, delayed primary closure. Procedure in detail was discussed as well as postoperative care with Patient. All questions were answered. All potential risks, benefits, complications, alternatives, rehab, potential for incomplete relief of symptoms, need for further surgery, DVT, PE, , persistent pain, swelling, scarring, weakness, neurovascular, wound complications and potential for amputations were discussed with patient. Unwanted outcomes such as, but not limited to were reviewed including under correction, overcorrection, return of deformity, infection. All questions were answered. Patient has decided to proceed with procedure as indicated. Preoperative diagnosis: 1.) Left foot diabetic foot wound, 2.) left cuboid osteomyelitis 3.) Left lateral cuneiform osteomyelitis 4.) 3rd metatarsal osteomyelitis Postoperative diagnosis: Same Procedure in detail: 1.) Excision of necrotic non viable bone left cuboid osteomyelitis, Left lateral cuneiform osteomyelitis, 3rd metatarsal osteomyelitis Surgeon: Dr. Hall Pulverizer Operator: none Anesthesia: Local monitored anesthesia care Hemostasis: none Estimated blood loss: 5ml Specimens: 1.) Bone Cuboid Left microbiology 2.) Bone left foot Cuboid, lateral cuneiform, 3rd metatarsal Pathology Procedure in detail: Under mild sedation the patient was brought in the operating room placed on the operating table in supine position. Following sedation the foot and ankle were prepped scrubbed and draped in the usual aseptic manner. Attention was then directed to Left foot diabetic non healing wound with exposed necrotic bone. The wound measures roughly 8 cm x 8 cm x 5 cm. An excision utilizing a sharp, sterile, #15 blade of adjacent necrotic devitalized soft tissue. All bleeders were ligated and cauterized as necessary. Utilizing an oscillating sagittal saw a portion of the cuboid was resected, labeled, and placed on the back table. Utilizing a fresh sharp, sterile, #15 blade an incision was created to lengthen the ulcer distally allowing exposure and dissection down to non viable 3rd metatarsal and lateral cuneiform bone. A rongeur was utilized for resection of necrotic bone from remaining lateral cuneiform and 3rd metatarsal and placed on the back table. A small piece of necrotic bone from cuboid was sent to both Micro. Remaining bone from cuboid resection, lateral cuneiform, and 3rd metatarsal was collected and sent to Pathology in formalin. No tracking was noted. Intra operative mini C-arm was used to evaluate the bone resection. 3 liters of lactate ringer was utilized to flush the wound gently. 1 Gm Vancomycin was applied directly over into wound and exposed bone. The wound was left open and dressed with sterile compressive dressing consisting of adaptic, 4 x 4's Marty Kerlix ABD. The Patient tolerated procedure and anesthesia well he was transferred to recovery room vital signs stable and vascular status intact all toes of the left foot following. Following a period of postoperative monitoring the patient will be discharged back to floor on the following written and postoperative oral instructions. Keep dressing clean dry and intact, avoid ambulation, elevate left ankle and foot contact Dr. Hall for all postoperative care if any problems arise. Surgeon Kleber Hall, DPM, MS Pulverizer Operator None Estimated Blood Loss 5 Findings Consistent with Post-Op Diagnosis necrotic bone Specimens see operative note for full list I attest to the content of the Intraoperative Record and any orders documented therein. Any exceptions are noted below.
--- NOTE | 2021-11-19 09:53 | Anesthesiology Progress Note ---
Date of Service November 19, 2021 Anesthesia Post Procedure Vital Signs Vital Signs: Temp Pulse Pulse Resp BP Pulse Ox 11/19/21 09:50 64 16 131/77 96 11/19/21 09:40 65 16 106/69 100 11/19/21 09:30 64 16 115/65 97 11/19/21 09:20 97.7 F 66 16 112/66 100 11/19/21 09:10 94 H 14 116/72 95 11/19/21 09:01 97.5 F L 90 14 100/64 97 11/19/21 07:20 98.2 F 71 16 114/64 97 11/18/21 22:08 98.4 F 73 18 105/66 100 11/18/21 16:46 98.2 F 70 18 108/62 100 Transfer of Care Handoff Completed per policy Notes Mental Status: alert / awake / arousable and participated in evaluation Patient Amnestic to Procedure: Yes Nausea / Vomiting: adequately controlled Pain: adequately controlled Airway Patency, RR, SpO2: stable & adequate BP & HR: stable & adequate Hydration State: stable & adequate Anesthetic Complications: no major complications apparent and Pt Satisfied with anesthetic care
[2021-11-19] MEDS: metroNIDAZOLE 500 MG TAB PO SCH ×3 (10:15→21:55)
[2021-11-19] MEDS: ROSUVASTATIN CALCIUM 20 MG TAB PO SCH (10:15)
[2021-11-19] MEDS ORDERED: VANCOMYCIN TROUGH ONE ×2 (10:30)
[2021-11-19] MEDS: CEFEPIME 2,000 MG in SYRINGE 0 ML IV SCH ×2 (10:32→18:08)
--- NOTE | 2021-11-19 10:36 | Fluoroscopy Report ---
FL foot LT 2V HISTORY: 56 years-old Male LEFT FOOT SOFT tissue swelling of the left foot COMPARISON: Left foot radiographs 11/17/2021 TECHNIQUE: 3 spot fluoroscopic images of the left foot were obtained utilizing 1.44 seconds fluorosco py time FINDINGS: Expected postoperative soft tissue swelling with deep tissue air prior partial amputation of the fore foot with interval bony resection of the lateral midfoot. There are a few punctate radiodensities not ed within the lateral soft tissues. IMPRESSION: Fluoroscopic assistance as above. ACT 112: Negative or not required by law. The above report was generated using voice recognition software. It may contain grammatical, syntax o r spelling errors. Electronically signed by: Alonzo Martines M.D. 11/19/2021 10:35 AM
[2021-11-19] MEDS: VANCOMYCIN HCL 1,500 MG in SODIUM CHLORIDE 0.9% 500 ML IV SCH ×2 (11:50→21:58)
--- NOTE | 2021-11-19 11:52 | Pharmacy Report ---
Pharmacy Vanc AUC Short Note - Date of Service November 19, 2021 - Assessment & Plan Assessment 56 year old M receiving IV Vancomycin, Cefepime, and Flagyl for treatment of diabetic foot; +osteo. Day # 3 of antimicrobial therapy. * s/p excision of non-viable bone and soft tissue L foot today * Renal function appears stable; sCr = 0.77 mg/dL with estimated CrCl >120 mL/min Plan Vancomycin * AUC/KARINA is the preferred PK/PD target for vancomycin * AUC guided dosing is effective and associated with decreased risk of nephrotoxicity compared to traditional trough targets * Trough level of 13.9 mcg/mL is predicted to achieve target AUC/KARINA of 400-600 mg/L.hr and may be associated with a 9 % risk of nephrotoxicity * Continue dose of 1500 mg IV every 12 hours * Trough level ordered for: 11/21/21 @ 1030 to ensure Vancomycin remains within therapeutic range Pharmacy will continue to follow and will adjust dose/frequency as necessary. Thank you.
[2021-11-19] MEDS ORDERED: Nursing to Pharmacy Communication SCH (14:45)
--- NOTE | 2021-11-19 14:59 | Hospitalist Progress Note ---
Date of Service November 19, 2021 Assessment & Plan (1) Diabetic infection of left foot: Plan: Diabetic foot infection with osteo- Patient seen and previously treated at [facility]. Pending records. Reportedly was discharged on Keflex with continued worsening of his infection Worsening DFI with osteo-, allergies to Augmentin. Placed on Rocephin, Flagyl, and Vanco empirically. Switched ceftriaxone to cefepime today for better OM coverage. blood cultures negative @ 24 hours -Wound culture left foot growing Proteus mirabilis Consult ID pending I&D performed on 11/17 and 11/[address] Hall. -HIm request sent for vascular notes from [facility] (2) Erythematous rash: Plan: Pt reports prior reactions to dryer sheets so possibly having a reaction to the bed sheets here vs. drug reaction. Given lack of pruritus will elect to just watch rash currently. (3) Diabetes mellitus type 2 with complications, uncontrolled: Plan: Type 2 diabetes mellitus On liraglutide and Takes lantus 18u + 7-10u aspart TID at home Hold home Victoza Consult pharmacy for glycemic control - glucose appears much ebtter controlled today (4) HLD (hyperlipidemia): Plan: - Continue crestor 40mg daily (5) HTN (hypertension): Plan: -Continue to hold ACEi due to relatively low BP (6) Legal blindness of left eye, as defined in [place]: Plan: Congenital diminished acuity in left eye since , does react to light. No acute intervention for this. This is not due to diabetic retinopathy. Plan: DVT prophylaxis: SCDs, start Lovenox 40mg SQ daily tomorrow to VTE prophylaxis Diet: T2DM Disposition: Continue on med/surg pending podiatry sign off and ID consult CODE STATUS: DNR/DNI, confirmed with patient. Surrogate decision maker would be his Admission and Anticipated Discharge Date Admission Date: November 17, 2021 Subjective POD#2 surgical I&D. No fever or chills. Patient reports doing well with good appetite. Pain under control. HIm request sent for vascular workup at [facility] as checked with admitting provider and patient did not come with any notes. Rash developed over the patients back but does not appear to be itchy. Review of Systems Review of Systems: All systems reviewed & are unremarkable except as noted in Subjective Physical Exam Constitutional: WD/WN, vitals as above Eyes: + anicteric sclerae; normal pupil size Respiratory: normal respiratory effort, lungs clear to auscultation Cardiovascular: RRR, no murmur, no edema Gastrointestinal (Abdomen): Inspection/Auscultation: normal bowel sounds Percussion/Palpation: abdomen soft; abdomen nontender, no guarding and abdomen not rigid Skin: + erythema (macular rash on bilateral lower extremities and confluent on back) Neurologic: moves all extremities and awake; not confused Psychiatric: A+Ox3, euthymic affect Results & Data Results & Data ([facility]) Vital Signs (Past 12 Hours) Vital Signs Temp Pulse Pulse Resp BP Pulse Ox 11/19/21 13:12 76 18 131/72 100 11/19/21 12:08 36.8 C 73 16 116/67 99 11/19/21 11:01 36.6 C 66 18 133/78 100 11/19/21 10:38 36.6 C 67 16 127/73 100 11/19/21 10:00 36.7 C 65 18 120/73 100 11/19/21 09:50 64 16 131/77 96 11/19/21 09:40 65 16 106/69 100 11/19/21 09:30 64 16 115/65 97 11/19/21 09:20 36.5 C 66 16 112/66 100 11/19/21 09:10 94 H 14 116/72 95 11/19/21 09:01 36.4 C L 90 14 100/64 97 11/19/21 07:20 36.8 C 71 16 114/64 97 PG Care Time/CCT Total # of Minutes Spent Total Time Spent with Patient: Total time spent is greater than 50% in coordination of care (as documented) at patient's floor/unit and/or counseling patient: Coding Level of Care Code 87349 Subseq Hosp Care Lvl 2 Diagnoses Diabetic infection of left foot E11.628; L08.9 Diabetes mellitus type 2 with complications, uncontrolled HLD (hyperlipidemia) E78.5 HTN (hypertension) I10 Legal blindness of left eye, as defined in [place] H54.8 Erythematous rash R21
--- NOTE | 2021-11-19 15:15 | Pharmacy Report ---
Pharmacy Glycemic Short Note 2 - Date of Service November 19, 2021 - Glycemic Short BSG Results (Last 24 hours): 11/18/21 11/18/21 11/18/21 17:24 20:41 23:58 Glucose POC Glucose 251 H 216 H 113 H 11/19/21 11/19/21 11/19/21 06:00 06:12 09:09 Glucose 133 H POC Glucose 116 H 134 H 11/19/21 12:07 Glucose POC Glucose 133 H OUTPATIENT ANTIDIABETIC REGIMEN: * Lantus 18 units daily, novolog 7-10 units TID, victoza ASSESSMENT: * 56 year old admitted with DM foot infection, now s/p OR * Patient received total of 39 units of insulin yesterday, of which 18 units were basal insulin * Fasting BSG 116 mg/dL - will hold AM insulin for NPO status, plan to resume basal with dinner as changing to diet then. Will use reduced dose since no PO intake most of day PLAN FOR INPATIENT GLYCEMIC CONTROL: * Hold outpatient oral diabetes medications * Basal insulin * Lantus 14 units with dinner - reduced for NPO * Bolus insulin * NovoLog per scale ACHS or Q6hrs while NPO * Goal Range: Low 110 mg/dL - High 140 mg/dL * Correction Factor: 25 mg/dL/unit * Nutritional / Prandial insulin per carb ratio of 1 unit per 8 grams CHO consumed
[2021-11-19] MEDS ORDERED: INSULIN GLARGINE SOLOSTAR 100 UNITS/ML 3 ML PEN SC ONE (17:00)
[2021-11-20] MEDS: CEFEPIME 2,000 MG in SYRINGE 0 ML IV SCH ×3 (01:56→17:07)
[2021-11-20 06:41] LABS: Creatinine Clr Calc Pharmacy 124.6 ml/min; Est GFR (African American) 116.8 ml/min; Est GFR (Non-African American) 100.8 ml/min
[2021-11-20 07:35] LABS: Estimated Average Glucose 295 mg/dl; Hemoglobin A1C 11.9 % (4.5-5.6)
[2021-11-20] MEDS: metroNIDAZOLE 500 MG TAB PO SCH ×3 (08:34→21:49)
[2021-11-20] MEDS: ROSUVASTATIN CALCIUM 20 MG TAB PO SCH (08:35)
[2021-11-20] MEDS: INSULIN ASPART PER UNIT SC SCH ×4 (08:47→21:46)
[2021-11-20] MEDS ORDERED: INSULIN GLARGINE SOLOSTAR 100 UNITS/ML 3 ML PEN SC SCH (09:00)
[2021-11-20] MEDS: ENOXAPARIN INJ 40 MG/0.4 ML SYR SQ SCH (10:38)
[2021-11-20] MEDS: VANCOMYCIN HCL 1,500 MG in SODIUM CHLORIDE 0.9% 500 ML IV SCH ×2 (10:39→22:26)
--- NOTE | 2021-11-20 11:14 | Pharmacy Report ---
Pharmacy Glycemic Short Note 2 - Date of Service November 20, 2021 - Glycemic Short BSG Results (Last 24 hours): 11/19/21 11/19/21 11/19/21 12:07 17:09 20:28 POC Glucose 133 H 135 H 183 H 11/20/21 07:50 POC Glucose 149 H OUTPATIENT ANTIDIABETIC REGIMEN: * Lantus 18 units daily, novolog 7-10 units TID, victoza * HbA1c 11.9% on 11/19/21 ASSESSMENT: 11/20 * Stressors stable. HbA1c resulted and is very high * AM fasting BSG slightly above goal range. Will slightly increase Lantus (up to home dose) * Post-prandial BSG's well controlled for 2 of 3 checks yesterday, although higher BSG was noted after the meal with the most CHO intake. Will leave CHO ratio for now, but may tighten later today if another post-prandial spike is observed 11/19 * 56 year old admitted with DM foot infection, now s/p OR * Patient received total of 39 units of insulin yesterday, of which 18 units were basal insulin * Fasting BSG 116 mg/dL - will hold AM insulin for NPO status, plan to resume basal with dinner as changing to diet then. Will use reduced dose since no PO intake most of day PLAN FOR INPATIENT GLYCEMIC CONTROL: * Hold outpatient oral diabetes medications * Basal insulin * Lantus 14 units with dinner - reduced for NPO * Bolus insulin * NovoLog per scale ACHS or Q6hrs while NPO * Goal Range: Low 110 mg/dL - High 140 mg/dL * Correction Factor: 25 mg/dL/unit * Nutritional / Prandial insulin per carb ratio of 1 unit per 8 grams CHO consumed
--- NOTE | 2021-11-20 15:30 | Hospitalist Progress Note ---
Date of Service November 20, 2021 Assessment & Plan (1) Diabetic infection of left foot: Plan: Diabetic foot infection with osteo- Patient seen and previously treated at [facility]. Pending records. Reportedly was discharged on Keflex with continued worsening of his infection Worsening DFI with osteo-, allergies to Augmentin. Placed on Rocephin, Flagyl, and Vanco empirically. Switched ceftriaxone to cefepime 11/19 for better OM coverage. blood cultures negative @ 24 hours -Wound culture left foot growing Proteus mirabilis and Prevotella - ID suspect can be switched to ceftriaxone +metronidazole but awaiting full sensitivities and repeat wound culture from 11/19. I&D performed on 11/17 and 11/[address] Hall. -HIM request sent for vascular notes from [facility] - will follow up on this tomorrow prior to discharge if no fax received. (2) Erythematous rash: Plan: Suspect related to bed sheets as spares areas on his back with the gown. Recommend wearing t-shirt in bed and cover areas exposed to bed sheets as much. 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 No acute intervention for this. This is not due to diabetic retinopathy. (7) Tinea cruris: Plan: Nystatin powder BID Plan: DVT prophylaxis: SCDs, Lovenox 40mg SQ daily Diet: T2DM Disposition: Continue on med/surg pending podiatry sign off and ID consult CODE STATUS: DNR/DNI, confirmed with patient. Surrogate decision maker would be his Admission and Anticipated Discharge Date Admission Date: November 17, 2021 Subjective He feels the rash is slightly worse than yesterday but still not pruritic. Also notes jock itch which he reports getting repeatedly in the past. Foot pain under control. Review of Systems Review of Systems: All systems reviewed & are unremarkable except as noted in Subjective Physical Exam Constitutional: WD/WN, vitals as above Eyes: + anicteric sclerae; normal pupil size Respiratory: normal respiratory effort, lungs clear to auscultation Cardiovascular: RRR, no murmur, no edema Gastrointestinal (Abdomen): Inspection/Auscultation: normal bowel sounds Percussion/Palpation: abdomen soft; abdomen nontender, no guarding and abdomen not rigid Skin: + rash (tinea cruris in groin not previous inspected) and + erythema (macular rash on bilateral lower extremities and confluent on back) Neurologic: moves all extremities and awake; not confused Psychiatric: A+Ox3, euthymic affect Results & Data Results & Data ([facility]) Vital Signs (Past 12 Hours) Vital Signs Temp Pulse Resp BP Pulse Ox 11/20/21 14:25 36.8 C 72 16 106/68 100 11/20/21 07:31 36.8 C 74 17 96/54 L 99 11/20/21 04:00 36.8 C 75 16 109/66 99 PG Care Time/CCT Total # of Minutes Spent Total Time Spent with Patient: Total time spent is greater than 50% in coordination of care (as documented) at patient's floor/unit and/or counseling patient: Coding Level of Care Code 78291 Subseq Hosp Care Lvl 2 Diagnoses Diabetic infection of left foot E11.628; L08.9 Erythematous rash R21 Diabetes mellitus type 2 with complications, uncontrolled HLD (hyperlipidemia) E78.5 HTN (hypertension) I10 Legal blindness of left eye, as defined in [place] H54.8 Tinea cruris B35.6
[2021-11-20] MEDS: NYSTATIN POWDER 15GM BTL EXT SCH (17:22)
--- NOTE | 2021-11-20 21:32 | Orthopedic Progress Note ---
Date of Service November 20, 2021 Assessment & Plan (1) Diabetic infection of left foot: Plan: Patient seen, evaluated, and treated. Wound Vac ordered for attempted increase in granulation tissue to wound. Will consider attempt at definitive primary closure of DFU if possible prior to discharge. Alternatively, Patient may return as out Patient. Thank you for allowing me to participate in the care of this Patient. Admission and Anticipated Discharge Date Admission Date: November 17, 2021 Subjective Patient status post day #1 excision of bone left foot. He is seen at bedside. He notes recent rash symptoms have decreased since placing his clothes on from home on. He has no other complaints. Physical Exam Physical Exam: Right BKA. Left foot shows open DFU with exposed bone and healthy bleeding. Continued decreased erythema and edema. Results & Data ([facility]) Vital Signs (Past 12 Hours) Vital Signs Temp Pulse Resp BP Pulse Ox 11/20/21 14:25 36.8 C 72 16 106/68 100
[2021-11-21] MEDS: CEFEPIME 2,000 MG in SYRINGE 0 ML IV SCH ×3 (01:28→17:33)
[2021-11-21] MEDS: ROSUVASTATIN CALCIUM 20 MG TAB PO SCH (08:35)
[2021-11-21] MEDS: metroNIDAZOLE 500 MG TAB PO SCH ×3 (08:36→21:08)
[2021-11-21] MEDS: ENOXAPARIN INJ 40 MG/0.4 ML SYR SQ SCH (08:36)
[2021-11-21] MEDS: INSULIN GLARGINE SOLOSTAR 100 UNITS/ML 3 ML PEN SC SCH (08:37)
[2021-11-21] MEDS: INSULIN ASPART PER UNIT SC SCH ×4 (08:44→21:13)
[2021-11-21] MEDS: NYSTATIN POWDER 15GM BTL EXT SCH ×2 (08:45→21:08)
[2021-11-21] MEDS ORDERED: VANCOMYCIN TROUGH ONE (10:30)
[2021-11-21 11:11] LABS: Basophils # (auto) 0.02 K/uL (0-0.2); Basophils % (auto) 0.3 %; Eosinophils % (auto) 5.9 %; Hematocrit (blood only) 43.5 % (42-52); Hemoglobin 14.8 g/dL (14.0-18.0); Immature Granulocytes # (auto) 0.02 K/uL (0.00-0.02); Immature Granulocytes % (auto) 0.3 %; Lymphocytes # (auto) 0.93 K/uL (1.2-3.4); Lymphocytes % (auto) 13.8 %; Mean Corpuscular Hemoglobin 29.3 pg (25-34); Mean Corpuscular Volume 86.1 fL (80-100); Mean Platelet Volume 9.6 fL (7.4-10.4); Monocytes # (auto) 0.47 K/uL (0.11-0.59); Neutrophils # (auto) 4.92 K/uL (1.4-6.5); Neutrophils % (auto) 72.7 %; Platelet Count 300 K/uL (130-400); RDW Coefficient of Variation 13.6 % (11.5-14.5); Red Blood Count 5.05 M/uL (4.7-6.1); White Blood Count 6.76 K/uL (4.8-10.8)
[2021-11-21] MEDS: VANCOMYCIN HCL 1,500 MG in SODIUM CHLORIDE 0.9% 500 ML IV SCH (11:12)
[2021-11-21 11:35] LABS: BUN Creatinine Ratio 19.8 (10-20); Calcium 8.8 mg/dl (8.5-10.1); Creatinine Clr Calc Pharmacy 105.1 ml/min; Est GFR (African American) 103.4 ml/min; Est GFR (Non-African American) 89.3 ml/min; Potassium 4.4 mmol/L (3.5-5.1)
--- NOTE | 2021-11-21 13:29 | Pharmacy Report ---
Pharmacy Glycemic Short Note 2 - Date of Service November 21, 2021 - Glycemic Short BSG Results (Last 24 hours): 11/20/21 11/20/21 11/21/21 16:47 20:49 08:12 Glucose POC Glucose 124 H 135 H 162 H 11/21/21 11/21/21 10:54 12:15 Glucose 249 H POC Glucose 248 H OUTPATIENT ANTIDIABETIC REGIMEN: * Lantus 18 units daily, novolog 7-10 units TID, victoza * HbA1c 11.9% on 11/19/21 ASSESSMENT: 11/21 * Blood sugars trending up prior to lunch, tighten CR with breakfast (discussed w/ pt, he is having sugar free syrup, but having waffles and pancakes, contributing to CHO load). * Lantus on scale, pt had 22 units today, continue. 11/20 * Stressors stable. HbA1c resulted and is very high * AM fasting BSG slightly above goal range. Will slightly increase Lantus (up to home dose) * Post-prandial BSG's well controlled for 2 of 3 checks yesterday, although higher BSG was noted after the meal with the most CHO intake. Will leave CHO ratio for now, but may tighten later today if another post-prandial spike is observed 11/19 * 56 year old admitted with DM foot infection, now s/p OR * Patient received total of 39 units of insulin yesterday, of which 18 units were basal insulin * Fasting BSG 116 mg/dL - will hold AM insulin for NPO status, plan to resume basal with dinner as changing to diet then. Will use reduced dose since no PO intake most of day PLAN FOR INPATIENT GLYCEMIC CONTROL: * Hold outpatient Victoza * Basal insulin * Lantus SQ Daily: 14 units for BSG < 100, 18 units BSG 100-140, 22 units BSG > 140 * Bolus insulin * NovoLog per scale ACHS or Q6hrs while NPO * Goal Range: Low 110 mg/dL - High 140 mg/dL * Correction Factor: 25 mg/dL/unit * Nutritional / Prandial insulin per carb ratio of 1 unit per 7 grams CHO consumed at all times, except 1 unit per 6 grams CHO at breakfast
--- NOTE | 2021-11-21 14:00 | Pharmacy Report ---
Pharmacy Vanc AUC Short Note - Date of Service November 21, 2021 - Assessment & Plan Assessment 56 year old M receiving IV Vancomycin, Cefepime, and Flagyl PO for treatment of diabetic foot; +osteo. Day # 5 of antimicrobial therapy. * POD2 excision of non-viable bone and soft tissue L foot * Renal function stable Foot culture 11/17, mcmillan sensitive proteus mirabilis Repeat foot cultures 11/19, preliminary skin microbiota, possible de-escalation after resulted. Plan Vancomycin * AUC/KARINA is the preferred PK/PD target for vancomycin * AUC guided dosing is effective and associated with decreased risk of nephrotoxicity compared to traditional trough targets * Trough level of 15.9 mcg/mL is predicted to achieve target AUC/KARINA of 400-600 mg/L.hr and may be associated with a 15 % risk of nephrotoxicity * Continue dose of 1500 mg IV every 12 hours Cefepime 2g IV Q8H Metronidazole 500mg PO TID Pharmacy will continue to follow and will adjust dose/frequency as necessary. Thank you.
--- NOTE | 2021-11-21 16:38 | Hospitalist Progress Note ---
Date of Service November 21, 2021 Assessment & Plan (1) Diabetic infection of left foot: Plan: Diabetic foot infection with osteo- Patient seen and previously treated at [facility]. Pending records. Reportedly was discharged on Keflex with continued worsening of his infection Worsening DFI with osteo-, allergies to Augmentin. Placed on Rocephin, Flagyl, and Vanco empirically. Switched ceftriaxone to cefepime 11/19 for better OM coverage. blood cultures negative @ 24 hours -Wound culture left foot growing Proteus mirabilis and Prevotella - ID suspect can be switched to ceftriaxone +metronidazole but awaiting full sensitivities and repeat wound culture from 11/19. I&D performed on 11/17 and 11/[address] Hall. -US RLE arterial Doppler from [facility] - significant flow velocity gradient noted between popliteal artery and posterior tibialis artery. This could indicate stenosis. A CT angiogram may yield better information. Pending pictures from [facility] which should be here tomorrow. Will consult vascular surgery to make sure this doesn't require intervention. (2) Erythematous rash: Plan: Suspect related to bed sheets as spares areas on his back with the gown. Rec ommend wearing t-shirt in bed and cover areas exposed to bed sheets as much. 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 No acute intervention for this. This is not due to diabetic retinopathy. (7) Tinea cruris: Plan: Nystatin powder BID Plan: DVT prophylaxis: SCDs, Lovenox 40mg SQ daily Diet: T2DM Disposition: Continue on med/surg pending podiatry sign off and ID consult CODE STATUS: DNR/DNI, confirmed with patient. Surrogate decision maker would be his Admission and Anticipated Discharge Date Admission Date: November 17, 2021 Subjective Rash improving after placing t-shirt on. Still significant in his groin area and legs as these are still touching our sheets. No fever or chills. Review of Systems Review of Systems: All systems reviewed & are unremarkable except as noted in Subjective Physical Exam Constitutional: WD/WN, vitals as above Respiratory: normal respiratory effort, lungs clear to auscultation Cardiovascular: RRR, no murmur, no edema Gastrointestinal (Abdomen): Inspection/Auscultation: normal bowel sounds Percussion/Palpation: abdomen soft; abdomen nontender, no guarding and abdomen not rigid Skin: + rash (tinea cruris in groin, similar to yesterday but package drier) and + erythema (macular rash improved on back but still on legs) Neurologic: moves all extremities and awake; not confused Psychiatric: A+Ox3, euthymic affect Results & Data Results & Data ([facility]) Vital Signs (Past 12 Hours) Vital Signs Temp Pulse Resp BP BP Pulse Ox 11/21/21 14:13 36.6 C 72 18 105/64 100 11/21/21 07:47 36.3 C L 74 18 105/57 L 93 PG Care Time/CCT Total # of Minutes Spent Total Time Spent with Patient: Total time spent is greater than 50% in coordination of care (as documented) at patient's floor/unit and/or counseling patient: Coding Level of Care Code 69988 Subseq Hosp Care Lvl 2 Diagnoses Diabetic infection of left foot E11.628; L08.9 Erythematous rash R21 Diabetes mellitus type 2 with complications, uncontrolled HLD (hyperlipidemia) E78.5 HTN (hypertension) I10 Legal blindness of left eye, as defined in [place] H54.8 Tinea cruris B35.6
--- NOTE | 2021-11-21 21:53 | Orthopedic Progress Note ---
Date of Service November 21, 2021 Assessment & Plan (1) Diabetic infection of left foot: Plan: Patient seen, evaluated, and treated. Wound vac intact. I discussed use of graft for closure with Patient once adequate granular base develops. This can be done as out Patient service. Awaiting final culture and sensitivities. Appreciate ID recommendations for Abx therapy prior to discharge. I will continue to follow while in house. Thank you for allowing me to participate in the care of this Patient. Admission and Anticipated Discharge Date Admission Date: November 17, 2021 Subjective Patient seen at bedside status post day #2 debridement, excision of bone left foot. Wound Vac intact. He has no complaints. Results & Data ([facility]) Vital Signs (Past 12 Hours) Vital Signs Temp Pulse Resp BP Pulse Ox 11/21/21 14:13 36.6 C 72 18 105/64 100
[2021-11-22] MEDS: VANCOMYCIN HCL 1,500 MG in SODIUM CHLORIDE 0.9% 500 ML IV SCH ×3 (00:29→22:21)
[2021-11-22] MEDS: CEFEPIME 2,000 MG in SYRINGE 0 ML IV SCH ×3 (00:29→17:23)
--- NOTE | 2021-11-22 03:16 | Communication Note ---
Date of Service: November 22, 2021 Notified by nursing that patient is having 7/10 pain near wound vac and the tylenol is not sufficiently is not sufficiently helping. Reviewed pdmp; no narcotics rx'd. . Ordered oxycodone 5mg q6h prn for moderate to severe pain.
[2021-11-22] MEDS: oxyCODONE HCL IR 5 MG TAB (IMMEDIATE RELEASE) PO PRN ×2 (03:53→12:00)
[2021-11-22] MEDS: metroNIDAZOLE 500 MG TAB PO SCH ×3 (08:38→21:20)
[2021-11-22] MEDS: ENOXAPARIN INJ 40 MG/0.4 ML SYR SQ SCH (08:38)
[2021-11-22] MEDS: INSULIN GLARGINE SOLOSTAR 100 UNITS/ML 3 ML PEN SC SCH (08:39)
[2021-11-22] MEDS: ROSUVASTATIN CALCIUM 20 MG TAB PO SCH (08:39)
[2021-11-22] MEDS: INSULIN ASPART PER UNIT SC SCH ×4 (08:50→21:21)
[2021-11-22] MEDS: NYSTATIN POWDER 15GM BTL EXT SCH ×2 (08:51→21:21)
--- NOTE | 2021-11-22 09:06 | Communication Note ---
Date of Service: November 22, 2021 Will need CTA from [place] to evaluate this patient. If not available, will need to have study repeated prior to seeing patient.
--- NOTE | 2021-11-22 13:40 | Consultation ---
Date of Consultation November 22, 2021 Assessment & Plan (1) Popliteal artery stenosis, left: I believe at this time if any salvage is to be attempted of the left lower extremity we will need to intervene on the popliteal artery stenosis to increase the blood flow to the foot. Patient understands that he may end up with a below-knee amputation due to the amount of osteomyelitis present in the left foot even with increased blood flow. At this point he is agreeable to go ahead with the intervention and try to save his foot being that he has a below-knee amputation on the right. He is excepting at this time that if a left below-knee amputation is needed he is ready for that procedure. Will plan on Saturday for the arteriogram. He can be discharged Saturday after the arteriogram if need be. Thank you very much for letting us participate in the care of this patient. History of Present Illness Reason for Consultation: Left popliteal artery stenosis Attending Physician: Brandon Ordaz MD History of Present Illness This is a 56-year-old diabetic white male with history of hypertension and hyperlipidemia. 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 He presented to another institution with a 2- week history of left foot infection with osteomyelitis. MRI showed osteomyelitis of the fourth and fifth metatarsals and possibly related navicular cuboid bone. There is also septic arthritis on the MR of the tibiotalar joint and subtalar joints. Since transfer to [facility] he has had debridement of his left foot. A wound VAC is in place at this time. He did have a CT angio done at [facility] which showed a popliteal artery stenosis of the left lower ex tremity. Allergies Allergy/AdvReac Type Severity Reaction Status Date / Time amoxicillin [From Augmentin] Allergy Intermediate face Verified 11/17/21 15:16 swelling atorvastatin [From Lipitor] Allergy Intermediate Rash Verified 11/17/21 15:16 clavulanic acid Allergy Intermediate face Verified 11/17/21 15:16 [From Augmentin] swelling empagliflozin Allergy Intermediate Rash Verified 11/17/21 15:16 [From Jardiance] latex Allergy Mild Rash Verified 11/17/21 15:16 ciprofloxacin [From Cipro] AdvReac Severe Gastrointestinal Verified 11/17/21 15:16 Upset aspirin AdvReac Intermediate epistaxis Verified 11/17/21 15:16 Home Medications Medication Instructions Recorded Confirmed Type benazepril 10 mg tablet 10 mg PO DAILY 11/17/21 11/17/21 History cephalexin 500 mg capsule 500 mg PO QID 11/17/21 11/17/21 History insulin aspart U-100 100 unit/mL 7 - 10 unit SUBCUT TIDM 11/17/21 11/17/21 History (3 mL) subcutaneous pen insulin glargine 100 unit/mL (3 18 unit SUBCUT DAILY 11/17/21 11/17/21 History mL) subcutaneous pen (Lantus Solostar U-100 Insulin) liraglutide 0.6 mg/0.1 mL (18 mg/3 1.2 mg SUBCUT DAILY 11/17/21 11/17/21 History mL) subcutaneous pen injector (Victoza 2-Ozzy) rosuvastatin 40 mg tablet (Crestor) 40 mg PO QAM 11/17/21 11/17/21 History Patient History Medical History Diabetes mellitus type 2 with complications, uncontrolled HLD (hyperlipidemia) HTN (hypertension) Legal blindness of left eye, as defined in [place] Surgical History History of tonsillectomy Social History Smoking Status: Former smoker Hx Alcohol Use: Yes Alcohol type: beer, wine and hard liquor Hx Substance Use: No Preferred Language: Albanian Communication Ability: Effective Rat Farmer Required: No Beliefs That Will Affect Care: None Current Living Situation: Family Other Information That Helps Us Care for You: No Feels Safe at Home: Yes Safety Concerns: Feels Safe At This Time Assistive Devices: Prosthesis, Walker and Wheelchair Review of Systems Review of Systems: All systems reviewed & are unremarkable except as noted in HPI & below Physical Exam Constitutional: WD/WN, vitals as above Respiratory: normal respiratory effort, lungs clear to auscultation Cardiovascular: RRR, no murmur, no edema Vessels: femoral pulses present, posterior tibial pulses present (Dopplerable on the left) and dorsalis pedis pulses present (Dopplerable on the left) He has a right below-knee amputation Gastrointestinal (Abdomen): normal bowel sounds, soft, nontender, no hepatosplenomegaly Musculoskeletal: no cyanosis or clubbing, extremities motor strength 5/5 Extremities: extremities normal to inspection (Right below-knee amputation, wound VAC present left foot) Knee: + surgical incision (Wound VAC in place) Skin: There is superficial ulceration of the left lower extremity anteriorly in the mid calf. There is redness seen in the lower extremity from the mid calf distally. Neurologic: CN's II-XI intact bilaterally and moves all extremities Psychiatric: Orientation: alert and oriented x 3 Results & Data ([facility]) Vital Signs (Past 12 Hours) Vital Signs Temp Pulse Resp BP Pulse Ox 11/22/21 07:11 36.5 C 72 16 124/67 97
--- NOTE | 2021-11-22 14:20 | Pharmacy Report ---
Pharmacy Glycemic Short Note 2 - Date of Service November 22, 2021 - Glycemic Short BSG Results (Last 24 hours): 11/21/21 11/21/21 11/22/21 17:13 20:23 08:04 POC Glucose 174 H 152 H 147 H 11/22/21 12:10 POC Glucose 220 H OUTPATIENT ANTIDIABETIC REGIMEN: * Lantus 18 units daily, novolog 7-10 units TID, victoza * HbA1c 11.9% on 11/19/21 ASSESSMENT: 11/22/21 * BSGs yesterday were [phone]. * Patient received 55 units of insulin (22 units of basal and 33 units of bolus). * Will continue with Lantus 22 units daily. * Will tighten breakfast CR as BSG increases with lunch. 11/21 * Blood sugars trending up prior to lunch, tighten CR with breakfast (discussed w/ pt, he is having sugar free syrup, but having waffles and pancakes, contributing to CHO load). * Lantus on scale, pt had 22 units today, continue. 11/20 * Stressors stable. HbA1c resulted and is very high * AM fasting BSG slightly above goal range. Will slightly increase Lantus (up to home dose) * Post-prandial BSG's well controlled for 2 of 3 checks yesterday, although higher BSG was noted after the meal with the most CHO intake. Will leave CHO ratio for now, but may tighten later today if another post-prandial spike is observed 11/19 * 56 year old admitted with DM foot infection, now s/p OR * Patient received total of 39 units of insulin yesterday, of which 18 units were basal insulin * Fasting BSG 116 mg/dL - will hold AM insulin for NPO status, plan to resume basal with dinner as changing to diet then. Will use reduced dose since no PO intake most of day PLAN FOR INPATIENT GLYCEMIC CONTROL: * Hold outpatient Victoza * Basal insulin * Lantus 22 units SQ daily * Bolus insulin * NovoLog per scale ACHS or Q6hrs while NPO * Goal Range: Low 110 mg/dL - High 140 mg/dL * Correction Factor: 25 mg/dL/unit * Nutritional / Prandial insulin per carb ratio of 1 unit per 7 grams CHO consumed at all times, except 1 unit per 5 grams CHO at breakfast
[2021-11-23] MEDS: CEFEPIME 2,000 MG in SYRINGE 0 ML IV SCH ×2 (01:27→08:36)
--- NOTE | 2021-11-23 06:30 | Hospitalist Progress Note ---
Date of Service November 22, 2021 Assessment & Plan (1) Diabetic infection of left foot: Plan: Diabetic foot infection with osteo- Patient seen and previously treated at [facility]. Pending records. Reportedly was discharged on Keflex with continued worsening of his infection Worsening DFI with osteo-, allergies to Augmentin. Placed on Rocephin, Flagyl, and Vanco empirically. Switched ceftriaxone to cefepime 11/19 for better OM coverage. blood cultures negative @ 24 hours -Wound culture left foot growing Proteus mirabilis and Prevotella - ID suspect can be switched to ceftriaxone +metronidazole but awaiting full sensitivities and repeat wound culture from 11/19. I&D performed on 11/17 and 11/[address] Hall. -US RLE arterial Doppler from [facility] - significant flow velocity gradient noted between popliteal artery and posterior tibialis artery. This could indicate stenosis. -CT angiogram with apparent occlusion of the right distal superficial femoral artery/proximal popliteal artery of indeterminate age. -Vascular planning on arteriogram on Saturday. (2) Erythematous rash: Plan: Improving. Suspect related to bed sheets as spares areas on his back with the gown. Recommend wearing t-shirt in bed and cover areas exposed to bed sheets as much. 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 No acute intervention for this. This is not due to diabetic retinopathy. (7) Tinea cruris: Plan: Nystatin powder BID Plan: DVT prophylaxis: SCDs, Lovenox 40mg SQ daily Diet: T2DM Disposition: Continue on med/surg pending arteriogram on Saturday. CODE STATUS: DNR/DNI, confirmed with patient. Surrogate decision maker would be his Admission and Anticipated Discharge Date Admission Date: November 17, [address] in [address]. CT angiogram report sent from [place]. Pictures are being sent by mail as unable to push these. Patient with no acute questions or concerns. No fever or chills. Rash continues to improve as he wears his usual clothes. Review of Systems Review of Systems: All systems reviewed & are unremarkable except as noted in Subjective Physical Exam Constitutional: WD/WN, vitals as above Respiratory: normal respiratory effort, lungs clear to auscultation Cardiovascular: RRR, no murmur, no edema Gastrointestinal (Abdomen): Inspection/Auscultation: normal bowel sounds Percussion/Palpation: abdomen soft; abdomen nontender, no guarding and abdomen not rigid Skin: + rash (tinea cruris in groin), + ulcer (wound vac in place) and + erythema (macular rash improved on back and legs) Neurologic: moves all extremities and awake; not confused Psychiatric: A+Ox3, euthymic affect Results & Data Results & Data ([facility]) Vital Signs (Past 12 Hours) Vital Signs Temp Pulse Resp BP Pulse Ox Pulse Ox 11/22/21 21:20 100 11/22/21 20:57 36.7 C 74 17 124/74 100 PG Care Time/CCT Total # of Minutes Spent Total Time Spent with Patient: Total time spent is greater than 50% in coordination of care (as documented) at patient's floor/unit and/or counseling patient: Coding Level of Care Code 33161 Subseq Hosp Care Lvl 2 Diagnoses Diabetic infection of left foot E11.628; L08.9 Erythematous rash R21 Diabetes mellitus type 2 with complications, uncontrolled HLD (hyperlipidemia) E78.5 HTN (hypertension) I10 Legal blindness of left eye, as defined in [place] H54.8 Tinea cruris B35.6
[2021-11-23 07:21] LABS: Creatinine Clr Calc Pharmacy 109.7 ml/min; Est GFR (African American) 108.9 ml/min
[2021-11-23] MEDS: ENOXAPARIN INJ 40 MG/0.4 ML SYR SQ SCH (08:07)
[2021-11-23] MEDS: ROSUVASTATIN CALCIUM 20 MG TAB PO SCH (08:08)
[2021-11-23] MEDS: metroNIDAZOLE 500 MG TAB PO SCH ×3 (08:08→21:52)
[2021-11-23] MEDS: NYSTATIN POWDER 15GM BTL EXT SCH ×2 (08:09→21:52)
[2021-11-23] MEDS: INSULIN ASPART PER UNIT SC SCH ×4 (08:34→21:46)
[2021-11-23] MEDS: INSULIN GLARGINE SOLOSTAR 100 UNITS/ML 3 ML PEN SC SCH (08:35)
[2021-11-23] MEDS: VANCOMYCIN HCL 1,500 MG in SODIUM CHLORIDE 0.9% 500 ML IV SCH (10:30)
--- NOTE | 2021-11-23 11:09 | Pharmacy Report ---
Pharmacy Vanc AUC Short Note - Date of Service November 23, 2021 - Assessment & Plan Assessment 56 year old M receiving [] for treatment of []. Pertinent microbiologic data includes: [Positive MRSA Nasal Swab] [] culture growing []. Day # []/[] of antimicrobial therapy. Plan Vancomycin * AUC/KARINA is the preferred PK/PD target for vancomycin * AUC guided dosing is effective and associated with decreased risk of nephrotoxicity compared to traditional trough targets * Trough level of [] mcg/mL is predicted to achieve target AUC/KARINA of 400-600 mg/L.hr and may be associated with a [] % risk of nephrotoxicity * Continue dose of [] mg IV every [] hours OR Change to [] mg IV every [] hours * Trough or random level ordered for: []/[]/[] Pharmacy will continue to follow and will adjust dose/frequency as necessary. Thank you.
[2021-11-23] MEDS: cefTRIAXone SODIUM 2,000 MG in DEXTROSE 5% 50 ML IV SCH (16:31)
--- NOTE | 2021-11-23 17:30 | Orthopedic Progress Note ---
Date of Service November 23, 2021 Assessment & Plan (1) Diabetic infection of left foot: Plan: Patient seen, evaluated, and treated. Appreciate Vascular consult and Patient scheduled for vascular intervention. I discussed use of graft for closure with Patient once adequate granular base develops from wound vac. This can be done as out Patient service. Awaiting final culture and sensitivities. Appreciate ID recommendations for Abx therapy prior to discharge. I will continue to follow while in house. Thank you for allowing me to participate in the care of this Patient. Admission and Anticipated Discharge Date Admission Date: November 17, 2021 Subjective Patient seen at bedside. He has no complaints. Wound vac is intact and running. Patient with no acute questions or concerns. Physical Exam Physical Exam: Right BKA. Left foot shows open DFU with exposed bone and healthy bleeding. Absent erythema and edema. No signs of infection. Excellent granulation tissue and significant signs of improvement. Results & Data ([facility]) Vital Signs (Past 12 Hours) Vital Signs Temp Pulse Resp BP Pulse Ox 11/23/21 14:26 37.0 C 74 16 123/71 100
--- NOTE | 2021-11-23 20:38 | Hospitalist Progress Note ---
Date of Service November 23, 2021 Assessment & Plan (1) Diabetic infection of left foot: Plan: Diabetic foot infection with osteo- Patient seen and previously treated at [facility]. Pending records. Reportedly was discharged on Keflex with continued worsening of his infection Worsening DFI with osteo-, allergies to Augmentin. Placed on Rocephin, Flagyl, and Vanco empirically. Switched ceftriaxone to cefepime 11/19 for better OM coverage. blood cultures negative @ 24 hours -Wound culture left foot growing Proteus mirabilis and Prevotella - ID suspect can be switched to ceftriaxone +metronidazole but awaiting full sensitivities and repeat wound culture from 11/19. I&D performed on 11/17 and 11/[address] Hall. -US RLE arterial Doppler from [facility] - significant flow velocity gradient noted between popliteal artery and posterior tibialis artery. This could indicate stenosis. -CT angiogram with apparent occlusion of the right distal superficial femoral artery/proximal popliteal artery of indeterminate age. -Vascular planning on arteriogram on Saturday. (2) Erythematous rash: Plan: Improving. Suspect related to bed sheets as spares areas on his back with the gown. Recommend wearing t-shirt in bed and cover areas exposed to bed sheets as much. 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 No acute intervention for this. This is not due to diabetic retinopathy. (7) Tinea cruris: Plan: Nystatin powder BID Plan: DVT prophylaxis: SCDs, Lovenox 40mg SQ daily Diet: T2DM Disposition: Continue on med/surg pending arteriogram on Saturday. CODE STATUS: DNR/DNI, confirmed with patient. Surrogate decision maker would be his Admission and Anticipated Discharge Date Admission Date: November 17, 2021 Subjective No new complaints. Visited room twice. Physical Exam Physical Exam: On commode Results & Data Results & Data ([facility]) Vital Signs (Past 12 Hours) Vital Signs Temp Pulse Resp BP Pulse Ox 11/23/21 14:26 37.0 C 74 16 123/71 100 PG Care Time/CCT Total # of Minutes Spent Total Time Spent with Patient: Total time spent is greater than 50% in coordination of care (as documented) at patient's floor/unit and/or counseling patient: Coding Level of Care Code 29320 Subseq Hosp Care Lvl 1 Diagnoses Diabetic infection of left foot E11.628; L08.9 Erythematous rash R21 Diabetes mellitus type 2 with complications, uncontrolled HLD (hyperlipidemia) E78.5 HTN (hypertension) I10 Legal blindness of left eye, as defined in [place] H54.8 Tinea cruris B35.6
[2021-11-24 06:39] LABS: Hematocrit (blood only) 42.1 % (42-52); Mean Corpuscular Hemoglobin 28.3 pg (25-34); Mean Corpuscular Hgb Conc 33.3 g/dL (32-36); Mean Corpuscular Volume 85.2 fL (80-100); Mean Platelet Volume 9.4 fL (7.4-10.4); Platelet Count 242 K/uL (130-400); RDW Coefficient of Variation 13.6 % (11.5-14.5); RDW Standard Deviation 42.4 fL (36.4-46.3); Red Blood Count 4.94 M/uL (4.7-6.1); White Blood Count 6.53 K/uL (4.8-10.8)
[2021-11-24 07:16] LABS: BUN Creatinine Ratio 27.1 (10-20); Calcium 8.6 mg/dl (8.5-10.1); Creatinine Clr Calc Pharmacy 118.7 ml/min; Est GFR (African American) 114.5 ml/min; Est GFR (Non-African American) 98.8 ml/min; Potassium 4.2 mmol/L (3.5-5.1)
[2021-11-24] MEDS ORDERED: fentaNYL citrate 100 MCG/2 ML VIAL ONE (07:40)
[2021-11-24] MEDS ORDERED: MIDAZOLAM HCL 1 MG/ML 2ML VIAL ONE (07:40)
[2021-11-24] MEDS: SODIUM CHLORIDE 0.9% 1000ML 1,000 ML IV SCH ×2 (07:42→15:44)
--- NOTE | 2021-11-24 07:46 | History & Physical Bridge Note ---
Date of Service November 24, 2021 History & Physical Bridge Note I have examined the patient, reviewed the History & Physical and in the interval since the performance of the History & Physical I have noted the following changes of clinical significance: no changes noted
--- NOTE | 2021-11-24 08:20 | Pre Anesthesia Assessment ---
Date of Service November 24, 2021 Pre Sedation Assessment Vital Signs Temp Pulse Pulse Resp BP BP Pulse Ox 11/24/21 08:15 77 18 144/78 H 100 11/24/21 07:34 37.1 C 76 20 127/71 98 11/24/21 07:19 36.7 C 73 16 113/67 99 11/23/21 23:26 36.8 C 77 18 127/69 100 11/23/21 14:26 37.0 C 74 16 123/71 100 Cardiovascular RRR, no murmur, no edema Respiratory normal respiratory effort, lungs clear to auscultation Pre-Sedation Airway Assessment Smoking Status: Former smoker Hx Sleep Apnea: No Short, Thick Neck: No Thyromental Distance: > or= 3.5 Finger Breadths Oral Cavity: + Dentures Mallampati Class: II ASA: ASA3 NPO Status Date of Last Intake of Fluids: 11/24/21 Time of Last Intake of Fluids: 00:00 Date of Last Intake of Solid Food: 11/24/21 Time of Last Intake of Solid Foods: 00:00 Procedure Planning Contraindications for Sedation: none Current Medications Reviewed: Yes Notes The planned sedation has been discussed with the patient. Informed Consent was obtained. I have identified the patient, determined the appropriateness of sedation and have assessed the patient immediately prior to the procedure. All medicine(s) and interventions are by my order.
--- NOTE | 2021-11-24 08:35 | Procedure Note ---
Angiogram Post Procedure Fluoroscopy Time (minutes): 1.7 Radiation (mGy): 55 Post Operative Report Pre & Post Diagnosis Operation Date: 11/17/21 18:05 Pre-Op Diagnosis: Infection in left foot Post-Op Diagnosis: Infection in left foot, necrotic bone left foot Operation Date: 11/19/21 07:30 Pre-Op Diagnosis: Diabetic infection of left foot Post-Op Diagnosis: Diabetic infection of left foot Operation Date: 11/24/21 08:00 Pre-Op Diagnosis: Infra-Popliteal Occlusive Disease With Osteomyelitis Post-Op Diagnosis: Infra-Popliteal Occlusive Disease With Osteomyelitis I identified the patient and participated in the time-out.: Yes Procedure Operation Date: 11/17/21 18:05 Actual Procedures p Incision and Drainage of Left Foot - Kleber Hall DPM, MS Operation Date: 11/19/21 07:30 Actual Procedures p Excision of Bone Left Foot, Delayed Primary Closure of Left Foot(Left) - Kleber Hall DPM, MS Operation Date: 11/24/21 08:00 Actual Procedures p Left Lower Extremity Arteriogram, Mechanical Closure, Moderate Sedation [id number] [id number](Right) - Davi Verde MD Surgeon Davi Verde MD Cob Sawyer Katharina Mejía MD Estimated Blood Loss 5 Findings Consistent with Post-Op Diagnosis Specimens none Drains none Anesthesia Type RN Sedation Complications none immediate Disposition Accompanied Patient To Recovery: No Disposition: Recovery Room Indications This is a 56 year old male with prior right below knee amputation who presents with osteomyelitis of the left foot. CT angiography from referring facility is reported to have shown a left popliteal artery stenosis. In order to optimize blood flow for wound healing and/or heal any amputation, he presents for left lower extremity angiography with possible intervention. Description of Procedure The patient was taken to the angio suite. He was transferred over to the angio table and placed in the supine position. The bilateral groins were prepped and draped in the usual sterile fashion. A team timeout was performed. Using ultrasound guidance the right common femoral artery was accessed using an 18G needle. A J wire was advanced through the needle. The needle was removed. A small dayo was made in the skin at the access site around the wire. A 5F access sheath was inserted. The J wire was removed and a floppy angled glidewire was advanced through the sheath into the aorta. A rim catheter was advanced over the wire up into the aorta. The left iliac system was selected and the catheter tip was placed at the proximal right common iliac artery. Angiography using hand injection was performed of the right iliac system and this demonstrated patent common, external, and internal iliac arteries with no flow limiting stenoses. The wire was reinserted and the catheter was advanced to the level of the left femoral head. From here hand injection was used to shoot angiography of the left lower extremity. The common femoral, superficial femoral, profunda femoris, popliteal, tibioperoneal trunk, and anterior tibial arteries were widely patent without flow-limiting stenosis. The posterior tibial artery was occluded at its origin. The peroneal and anterior tibial arteries gave runoff to the foot. Given the reported findings of CT angiography with a left popliteal artery stenosis, we re-examined the popliteal artery with an additional shot taken in left anterior oblique however no flow limiting stenosis was identified. The catheter was removed. A starclose device was deployed for percutaneous closure of the arteriotomy site. This had good take and hemostasis was noted. Manual pressure was held for 5 minutes. The patient tolerated the procedure well and without immediate complication. Dr. Verde remained present and scrubbed for the duration of the procedure. The patient was taken to the recovery room in satisfactory condition. I attest to the content of the Intraoperative Record and any orders documented therein. Any exceptions are noted below.
--- NOTE | 2021-11-24 08:40 | Post Operative Brief Note ---
Immediate Post Op Note v1 Date of Surgery November 24, 2021 Pre & Post Diagnosis Operation Date: 11/17/21 18:05 Pre-Op Diagnosis: Infection in left foot Post-Op Diagnosis: Infection in left foot, necrotic bone left foot Operation Date: 11/19/21 07:30 Pre-Op Diagnosis: Diabetic infection of left foot Post-Op Diagnosis: Diabetic infection of left foot Operation Date: 11/24/21 08:00 Pre-Op Diagnosis: Infrapopliteal Occlusive Disease With Osteomyelitis Post-Op Diagnosis: Infrapopliteal Occlusive Disease With Osteomyelitis I identified the patient and participated in the time-out.: Yes Procedure Operation Date: 11/17/21 18:05 Actual Procedures p Incision and Drainage of Left Foot - Kleber Hall DPM, MS Operation Date: 11/19/21 07:30 Actual Procedures p Excision of Bone Left Foot, Delayed Primary Closure of Left Foot(Left) - Kleber Hall DPM, MS Operation Date: 11/24/21 08:00 Actual Procedures p Left Lower Extremity Arteriogram, Mechanical Closure, Moderate Sedation [id number] [id number](Right) - Davi Verde MD Surgeon Davi Verde MD City Assessor MD Eyal Estimated Blood Loss 5 Findings Consistent with Post-Op Diagnosis Anesthesia Type RN Sedation Complications none Disposition Accompanied Patient To Recovery: No Disposition: Recovery Room
[2021-11-24] MEDS ORDERED: LIDOCAINE 1% LOCAL 20 ML VIAL INJ ONE (08:41)
[2021-11-24] MEDS ORDERED: VISIPAQUE IV PRN (08:41)
--- NOTE | 2021-11-24 08:55 | Communication Note ---
Date of Service: November 24, 2021 This patient underwent arteriography today. He has widely patent arteries of the pelvis of the left lower extremity through the anterior tibial and peroneal arteries. The anterior tibials has inline flow to the foot via the dorsalis pedis. The peroneal is patent through its entirety and gives collateral branches to reconstitute the posterior tibial at the ankle. The posterior tibial artery is occluded from its origin down to the area where it reconstitutes at the ankle. There is no need for any intervention at this time. He has good flow to his foot through his remaining vessels. From his arteriogram standpoint he can be discharged 3 hours after his procedure.
[2021-11-24] MEDS ORDERED: SODIUM CHLORIDE 0.9% 1000ML 1,000 ML IV SCH (09:02)
[2021-11-24] MEDS: INSULIN ASPART PER UNIT SC SCH ×5 (09:16→21:24)
[2021-11-24] MEDS: ENOXAPARIN INJ 40 MG/0.4 ML SYR SQ SCH (09:49)
[2021-11-24] MEDS: INSULIN GLARGINE SOLOSTAR 100 UNITS/ML 3 ML PEN SC SCH (09:49)
[2021-11-24] MEDS: metroNIDAZOLE 500 MG TAB PO SCH ×2 (09:50→14:02)
[2021-11-24] MEDS: ROSUVASTATIN CALCIUM 20 MG TAB PO SCH (09:50)
--- NOTE | 2021-11-24 09:50 | Post Anesthesia Assessment ---
Date of Service November 24, 2021 Post Sedation Assessment Vital Signs Temp Pulse Pulse Resp BP BP Pulse Ox 11/24/21 09:47 74 16 113/64 97 11/24/21 09:30 36.6 C 72 14 108/65 92 11/24/21 09:14 36.7 C 71 12 109/67 91 11/24/21 09:00 36.7 C 73 16 120/70 95 11/24/21 08:44 77 16 130/74 97 11/24/21 08:39 75 16 128/77 98 11/24/21 08:35 75 16 130/80 97 11/24/21 08:30 76 16 131/76 98 11/24/21 08:25 76 16 131/78 98 11/24/21 08:20 76 18 140/89 100 11/24/21 08:15 77 18 144/78 H 100 11/24/21 07:34 37.1 C 76 20 127/71 98 11/24/21 07:19 36.7 C 73 16 113/67 99 11/23/21 23:26 36.8 C 77 18 127/69 100 11/23/21 14:26 37.0 C 74 16 123/71 100 Recovery Score Activity: Moves 4 extremities Respiration: Deep Breath/Cough Circulation: +/-20% PreAnes Value Consciousness: Arouseable (by name) Oxygen Saturation: O2 needed for >90% Post Anesthesia Score: 8 Discharge Sedation Level of Care: Fast Track Phase II Post Sedation Plan On clinical assessment, the patient appears to have tolerated the sedation without complications. Patient is recovering as anticipated. Patient will continue to be monitored by nursing and may be discharged when sedation discharge criteria are met per below protocol. Upon Completions of procedure up to 15 minutes continue every 5 minute vital signs and the P.A.R. score; then discharge to a Phase I or Fast Track to Phase II per the following guidelines: * Discharge Patient to appropriate Phase II area if PAR is 8 or greater or return to pre- procedure baseline. The post - procedure orders will be as directed. * If PAR score is less than 8 or not return to pre-procedure baseline then patient will follow Phase I monitoring till PAR is reached for Phase II. The Phase I may be done in procedure room or may call to secure a Phase I area. * If naloxone or flumazenil are used for reversal, hold in Phase I for continued monitoring from when last reversal dose was given for a minimum of 60 minutes or longer pending the nurse and/or physician discretion of patient condition before discharge to Phase II. Please call the Sedation Physician to re-evaluate and complete post-note for discharge to Phase II area. Do NOT discharge from procedure sedation or Phase 1 until post- sedation evaluation note is complete by procedure /sedation MD Sedation Discharge Instructions to be given to the patient at discharge to home.
[2021-11-24] MEDS: NYSTATIN POWDER 15GM BTL EXT SCH ×2 (09:57→21:27)
--- NOTE | 2021-11-24 12:34 | Pharmacy Report ---
Pharmacy Glycemic Short Note 2 - Date of Service November 24, 2021 - Glycemic Short BSG Results (Last 24 hours): 11/23/21 11/23/21 11/24/21 17:00 20:54 06:27 Glucose 128 H POC Glucose 227 H 120 H 11/24/21 11/24/21 07:49 12:05 Glucose POC Glucose 124 H 156 H OUTPATIENT ANTIDIABETIC REGIMEN: * Lantus 18 units daily, novolog 7-10 units TID, victoza * HbA1c 11.9% on 11/19/21 ASSESSMENT: 11/24/21 * BSGs yesterday were [phone] mg/dL. Today's BSGs are 124-156 mg/dL. * Continue Lantus. If BSG continues to trend below 110 mg/dL then reduce Lantus dose by 10%. * Continue Novolog as BSGs are steady. 11/22/21 * BSGs yesterday were [phone]. * Patient received 55 units of insulin (22 units of basal and 33 units of bolus). * Will continue with Lantus 22 units daily. * Will tighten breakfast CR as BSG increases with lunch. 11/21 * Blood sugars trending up prior to lunch, tighten CR with breakfast (discussed w/ pt, he is having sugar free syrup, but having waffles and pancakes, contributing to CHO load). * Lantus on scale, pt had 22 units today, continue. 11/20 * Stressors stable. HbA1c resulted and is very high * AM fasting BSG slightly above goal range. Will slightly increase Lantus (up to home dose) * Post-prandial BSG's well controlled for 2 of 3 checks yesterday, although higher BSG was noted after the meal with the most CHO intake. Will leave CHO ratio for now, but may tighten later today if another post-prandial spike is observed 11/19 * 56 year old admitted with DM foot infection, now s/p OR * Patient received total of 39 units of insulin yesterday, of which 18 units were basal insulin * Fasting BSG 116 mg/dL - will hold AM insulin for NPO status, plan to resume basal with dinner as changing to diet then. Will use reduced dose since no PO intake most of day PLAN FOR INPATIENT GLYCEMIC CONTROL: * Hold outpatient Victoza * Basal insulin * Lantus 22 units SQ daily (20 units if BSG < 110 mg/dL) * Bolus insulin * NovoLog per scale ACHS or Q6hrs while NPO * Goal Range: Low 110 mg/dL - High 140 mg/dL * Correction Factor: 25 mg/dL/unit * Nutritional / Prandial insulin per carb ratio of 1 unit per 7 grams CHO consumed at all times, except 1 unit per 5 grams CHO at breakfast
[2021-11-24] MEDS: cefTRIAXone SODIUM 2,000 MG in DEXTROSE 5% 50 ML IV SCH (14:02)
--- NOTE | 2021-11-24 21:29 | Hospitalist Progress Note ---
Date of Service November 24, 2021 Assessment & Plan (1) Diabetic infection of left foot: Plan: Diabetic foot infection with osteo- Patient seen and previously treated at [facility]. Pending records. Reportedly was discharged on Keflex with continued worsening of his infection Worsening DFI with osteo-, allergies to Augmentin. Placed on Rocephin, Flagyl, and Vanco empirically. Switched ceftriaxone to cefepime 11/19 for better OM coverage. blood cultures negative @ 24 hours -Wound culture left foot growing Proteus mirabilis and Prevotella - ID recommended ceftriaxone +metronidazole. completed change. I&D performed on 11/17 and 11/[address] Hall. -US RLE arterial Doppler from [facility] - significant flow velocity gradient noted between popliteal artery and posterior tibialis artery. This could indicate stenosis. -CT angiogram with apparent occlusion of the right distal superficial femoral artery/proximal popliteal artery of indeterminate age. -arteriogram was negative. No intervention required. Plan to switch wound vac on Saturday and Saturday. (2) Erythematous rash: Plan: Improving. Suspect related to bed sheets as spares areas on his back with the gown. Rec ommend wearing t-shirt in bed and cover areas exposed to bed sheets as much. 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 No acute intervention for this. This is not due to diabetic retinopathy. (7) Tinea cruris: Plan: Nystatin powder BID Plan: DVT prophylaxis: SCDs, Lovenox 40mg SQ daily Diet: T2DM Disposition: Continue on med/surg pending arteriogram on Saturday. CODE STATUS: DNR/DNI, confirmed with patient. Surrogate decision maker would be his Admission and Anticipated Discharge Date Admission Date: November 17, 2021 Subjective Patient reports feeling well. He has no new complaints. Review of Systems Review of Systems: All systems reviewed & are unremarkable except as noted in HPI & below Physical Exam Constitutional: WD/WN, vitals as above Eyes: + anicteric sclerae; normal pupil size Respiratory: normal respiratory effort, lungs clear to auscultation Cardiovascular: RRR, no murmur, no edema Gastrointestinal (Abdomen): Inspection/Auscultation: normal bowel sounds Percussion/Palpation: abdomen soft; abdomen nontender, no guarding and abdomen not rigid Skin: no rashes, warm and dry (surgical dressing not removed but no surrounding cellulitis) + rash (tinea cruris in groin), + ulcer (wound vac in place) and + erythema (macular rash improved on back and legs) Neurologic: moves all extremities and awake; not confused Psychiatric: A+Ox3, euthymic affect Results & Data Results & Data ([facility]) Vital Signs (Past 12 Hours) Vital Signs Temp Pulse Resp BP BP Pulse Ox 11/24/21 14:56 36.9 C 75 16 103/68 98 11/24/21 13:59 36.7 C 71 14 124/69 100 11/24/21 13:00 36.5 C 75 14 109/66 100 11/24/21 12:01 36.7 C 81 18 108/67 100 11/24/21 11:00 36.8 C 75 18 125/74 98 11/24/21 10:43 36.7 C 73 16 117/73 100 11/24/21 10:00 36.6 C 73 16 120/70 99 11/24/21 09:47 74 16 113/64 97 11/24/21 09:30 36.6 C 72 14 108/65 92 PG Care Time/CCT Total # of Minutes Spent Total Time Spent with Patient: Total time spent is greater than 50% in coordination of care (as documented) at patient's floor/unit and/or counseling patient: Coding Level of Care Code 96285 Subseq Hosp Care Lvl 2 Diagnoses Diabetic infection of left foot E11.628; L08.9 Erythematous rash R21 Diabetes mellitus type 2 with complications, uncontrolled HLD (hyperlipidemia) E78.5 HTN (hypertension) I10 Legal blindness of left eye, as defined in [place] H54.8 Tinea cruris B35.6
[2021-11-25] MEDS: SODIUM CHLORIDE 0.9% 1000ML 1,000 ML IV SCH ×2 (01:03→10:47)
[2021-11-25] MEDS: ENOXAPARIN INJ 40 MG/0.4 ML SYR SQ SCH (07:28)
[2021-11-25] MEDS: ROSUVASTATIN CALCIUM 20 MG TAB PO SCH (07:28)
[2021-11-25] MEDS: NYSTATIN POWDER 15GM BTL EXT SCH ×2 (07:28→21:02)
[2021-11-25] MEDS: INSULIN GLARGINE SOLOSTAR 100 UNITS/ML 3 ML PEN SC SCH (08:22)
[2021-11-25] MEDS: cefTRIAXone SODIUM 2,000 MG in DEXTROSE 5% 50 ML IV SCH (12:38)
[2021-11-25] MEDS: INSULIN ASPART PER UNIT SC SCH ×3 (12:44→21:03)
--- NOTE | 2021-11-25 17:54 | Hospitalist Progress Note ---
Date of Service November 25, 2021 Assessment & Plan (1) Diabetic infection of left foot: Plan: Diabetic foot infection with osteo- Patient seen and previously treated at [facility]. Pending records. Reportedly was discharged on Keflex with continued worsening of his infection Worsening DFI with osteo-, allergies to Augmentin. Placed on Rocephin, Flagyl, and Vanco empirically. Switched ceftriaxone to cefepime 11/19 for better OM coverage. blood cultures negative @ 24 hours -Wound culture left foot growing Proteus mirabilis and Prevotella - ID recommended ceftriaxone +metronidazole. completed change. I&D performed on 11/17 and 11/[address] Hall. -US RLE arterial Doppler from [facility] - significant flow velocity gradient noted between popliteal artery and posterior tibialis artery. This could indicate stenosis. -CT angiogram with apparent occlusion of the right distal superficial femoral artery/proximal popliteal artery of indeterminate age. -arteriogram was negative. No intervention required. Plan to switch wound vac on Saturday and Saturday. Will need to get PICC line in place prior to discharge, (2) Erythematous rash: Plan: Improving. Suspect related to bed sheets as spares areas on his back with the gown. Recommend wearing t-shirt in bed and cover areas exposed to bed sheets as much. 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 No acute intervention for this. This is not due to diabetic retinopathy. (7) Tinea cruris: Plan: Nystatin powder BID Plan: DVT prophylaxis: SCDs, Lovenox 40mg SQ daily Diet: T2DM Disposition: Continue on med/surg pending arteriogram on Saturday. CODE STATUS: DNR/DNI, confirmed with patient. Surrogate decision maker would be his Admission and Anticipated Discharge Date Admission Date: November 17, 2021 Subjective Patient reports no new symptoms today. Review of Systems Review of Systems: All systems reviewed & are unremarkable except as noted in HPI & below Physical Exam Constitutional: WD/WN, vitals as above Eyes: + anicteric sclerae; normal pupil size Respiratory: normal respiratory effort, lungs clear to auscultation Cardiovascular: RRR, no murmur, no edema Gastrointestinal (Abdomen): Inspection/Auscultation: normal bowel sounds Percussion/Palpation: abdomen soft; abdomen nontender, no guarding and abdomen not rigid Skin: no rashes, warm and dry (surgical dressing not removed but no surrounding cellulitis) + rash (tinea cruris in groin), + ulcer (wound vac in place) and + erythema (macular rash improved on back and legs) Neurologic: moves all extremities and awake; not confused Psychiatric: A+Ox3, euthymic affect Results & Data Results & [facility] ([facility]) Vital Signs (Past 12 Hours) Vital Signs Temp Pulse Resp BP BP Pulse Ox 11/25/21 14:47 36.8 C 78 18 125/76 98 11/25/21 07:15 36.7 C 75 16 115/70 98 PG Care Time/CCT Total # of Minutes Spent Total Time Spent with Patient: Total time spent is greater than 50% in coordination of care (as documented) at patient's floor/unit and/or counseling patient: Coding Level of Care Code 81355 Subseq Hosp Care Lvl 2 Diagnoses Diabetic infection of left foot E11.628; L08.9 Erythematous rash R21 Diabetes mellitus type 2 with complications, uncontrolled HLD (hyperlipidemia) E78.5 HTN (hypertension) I10 Legal blindness of left eye, as defined in [place] H54.8 Tinea cruris B35.6
[2021-11-26 06:04] LABS: BUN Creatinine Ratio 31.2 (10-20); Calcium 8.4 mg/dl (8.5-10.1); Creatinine Clr Calc Pharmacy 131.1 ml/min; Est GFR (African American) 119.2 ml/min; Est GFR (Non-African American) 102.9 ml/min; Potassium 4.3 mmol/L (3.5-5.1)
[2021-11-26 06:40] LABS: Hematocrit (blood only) 41.2 % (42-52); Hemoglobin 13.9 g/dL (14.0-18.0); Mean Corpuscular Hgb Conc 33.7 g/dL (32-36); Mean Corpuscular Volume 85.8 fL (80-100); Mean Platelet Volume 9.8 fL (7.4-10.4); Platelet Count 239 K/uL (130-400); RDW Coefficient of Variation 13.7 % (11.5-14.5); RDW Standard Deviation 42.7 fL (36.4-46.3); White Blood Count 6.15 K/uL (4.8-10.8)
[2021-11-26] MEDS: INSULIN GLARGINE SOLOSTAR 100 UNITS/ML 3 ML PEN SC SCH (08:21)
[2021-11-26] MEDS: INSULIN ASPART PER UNIT SC SCH ×4 (08:21→21:22)
[2021-11-26] MEDS: ENOXAPARIN INJ 40 MG/0.4 ML SYR SQ SCH (08:22)
[2021-11-26] MEDS: NYSTATIN POWDER 15GM BTL EXT SCH ×2 (08:22→21:23)
[2021-11-26] MEDS: ROSUVASTATIN CALCIUM 20 MG TAB PO SCH (08:22)
[2021-11-26] MEDS: cefTRIAXone SODIUM 2,000 MG in DEXTROSE 5% 50 ML IV SCH (13:12)
--- NOTE | 2021-11-26 13:47 | Pharmacy Report ---
Pharmacy Glycemic Sign Off Nt - Date of Service November 26, 2021 - Assessment & Plan ASSESSMENT: * Pharmacy was consulted by Dr Ordaz on 11/18/21 for glycemic control and to write orders per [facility] inpatient glycemic control protocol. * Major changes made by pharmacy to antidiabetic regimen include: * initiation of Lantus * initiation of Novolog * Patient has been receiving/requiring 45-50 units of insulin per day for adequate glycemic control * BSGs ranging 133 -176 mg/dl * Regimen has only required minor adjustments over the past 48hrs to achieve this level of control * Do not anticipate further changes in patient status that would quickly deteriorate glycemic control (i.e. patient to be NPO for upcoming procedure, steroids tapering, starting tube feedings, etc). * Please see recommendations for outpatient antidiabetic regimen below. PLAN FOR INPATIENT GLYCEMIC CONTROL: No changes needed to current regimen. * Continue basal insulin with Lantus 22 units SQ daily * Continue NovoLog per scale ACHS/Q6hrs while NPO * Goal range = 110- 140 mg/dl * CF = 25 mg/dl/unit * CR = 1 unit for ever 7 g CHO consumed (carbohydrate ratio of 5 with breakfast) * Pharmacy is signing off of glycemic consult and will no longer be making adjustments to inpatient regimen. Please feel free to re-consult if needed. Thank you.
--- NOTE | 2021-11-26 21:56 | Hospitalist Progress Note ---
Date of Service November 26, 2021 Assessment & Plan (1) Diabetic infection of left foot: Plan: Diabetic foot infection with osteo- Patient seen and previously treated at [facility]. Pending records. Reportedly was discharged on Keflex with continued worsening of his infection Worsening DFI with osteo-, allergies to Augmentin. Placed on Rocephin, Flagyl, and Vanco empirically. Switched ceftriaxone to cefepime 11/19 for better OM coverage. blood cultures negative @ 24 hours -Wound culture left foot growing Proteus mirabilis and Prevotella - ID recommended ceftriaxone +metronidazole. completed change. I&D performed on 11/17 and 11/[address] Hall. -US RLE arterial Doppler from [facility] - significant flow velocity gradient noted between popliteal artery and posterior tibialis artery. This could indicate stenosis. -CT angiogram with apparent occlusion of the right distal superficial femoral artery/proximal popliteal artery of indeterminate age. -arteriogram was negative. No intervention required. wound vac switched yesterday, will switch on Saturday. Will need to get PICC line in place prior to discharge, consent obtained. (2) Erythematous rash: Plan: Improving. Suspect related to bed sheets as spares areas on his back with the gown. Recommend wearing t-shirt in bed and cover areas exposed to bed sheets as much. 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 No acute intervention for this. This is not due to diabetic retinopathy. (7) Tinea cruris: Plan: Nystatin powder BID Plan: DVT prophylaxis: SCDs, Lovenox 40mg SQ daily Diet: T2DM Disposition: Continue on med/surg pending arteriogram on Saturday. CODE STATUS: DNR/DNI, confirmed with patient. Surrogate decision maker would be his Admission and Anticipated Discharge Date Admission Date: November 17, 2021 Subjective 56 yo m reports no new symptoms. Patient reports he refuses to go to a SNF. will only go home tomorrow. Review of Systems Review of Systems: All systems reviewed & are unremarkable except as noted in HPI & below Physical Exam Constitutional: WD/WN, vitals as above Eyes: + anicteric sclerae; normal pupil size Respiratory: normal respiratory effort, lungs clear to auscultation Cardiovascular: RRR, no murmur, no edema Gastrointestinal (Abdomen): Inspection/Auscultation: normal bowel sounds Percussion/Palpation: abdomen soft; abdomen nontender, no guarding and abdomen not rigid Skin: no rashes, warm and dry (surgical dressing not removed but no surrounding cellulitis; wound vac plac) Neurologic: moves all extremities and awake; not confused Psychiatric: A+Ox3, euthymic affect Results & Data Results & Data ([facility]) Vital Signs (Past 12 Hours) Vital Signs Temp Pulse Resp BP Pulse Ox 11/26/21 15:10 36.7 C 73 16 121/74 100 PG Care Time/CCT Total # of Minutes Spent Total Time Spent with Patient: Total time spent is greater than 50% in coordination of care (as documented) at patient's floor/unit and/or counseling patient: Coding Level of Care Code 41445 Subseq Hosp Care Lvl 2 Diagnoses Diabetic infection of left foot E11.628; L08.9 Erythematous rash R21 Diabetes mellitus type 2 with complications, uncontrolled HLD (hyperlipidemia) E78.5 HTN (hypertension) I10 Legal blindness of left eye, as defined in [place] H54.8 Tinea cruris B35.6
[2021-11-27] MEDS: INSULIN ASPART PER UNIT SC SCH ×2 (08:49→12:41)
[2021-11-27] MEDS: ENOXAPARIN INJ 40 MG/0.4 ML SYR SQ SCH (08:50)
[2021-11-27] MEDS: INSULIN GLARGINE SOLOSTAR 100 UNITS/ML 3 ML PEN SC SCH (08:50)
[2021-11-27] MEDS: ROSUVASTATIN CALCIUM 20 MG TAB PO SCH (08:51)
[2021-11-27] MEDS: NYSTATIN POWDER 15GM BTL EXT SCH (08:51)
[2021-11-27] MEDS ORDERED: metroNIDAZOLE 500 MG TAB PO STA (14:53)
[2021-11-27] MEDS: cefTRIAXone SODIUM 2,000 MG in DEXTROSE 5% 50 ML IV SCH (15:38)
--- NOTE | 2021-12-03 09:06 | Discharge Summary ---
Date of Service November 27, 2021 Admission HPI Per Admitting Provider Chet is a 56-year-old male with a past medical history of diabetes who is been referred from podiatry Dr. Hall for admission for worsened left foot cellulitis with osteomyelitis which has not improved with antibiotic therapy and which is anticipated to need surgical revision. 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 In ER troponin is negative, chest x-ray is negative. "I have an infection in my foot. Dr. Hall seen me and wanted to come over so he could do some debridement of the bone." Infection started 2 weeks ago, seen in [facility] and d/c 4 days ago. He is not sure if they had a culture result, but was discharged on Keflex. After he was discharged did not notice any change in the foot. Did not have diabetic shoes available. No fevers, chills or sweats. Had gotten flushed with vanco and low grade fever in the past. none INFRASTRUCTURE ANALYST. No shortness of breath, no chest pain,or chest pressure. Hungry, no n ausea, no vomiting. Blind in L eye since . HTN on Benzepril. HLD: Crestor 40mg daily DM: Takes lantus 18u + 7-10u aspart TID A1C 9.9% in Sep 2021. Dr. Mindy Loera is normal blocker and polisher. Medical History: Reviewed Medications: Reviewed Surgical History: Reviewed Allergies: Reviewed Social History: No tobacco product use in 16 years. Social alcohol on holidays. Recreational marijuana in the past, none recent. Uses CBD cream for arthritis. Code Status: Surrogate DM would be Mira. DNR/DNI. R BKA Mar 2007. Cataract sx, tonsillectomy. Principal Diagnosis Diabetic foot infection of left foot. Discharge Exam On commode Constitutional WD/WN, vitals as above Eyes + anicteric sclerae; normal pupil size Respiratory normal respiratory effort, lungs clear to auscultation Cardiovascular RRR, no murmur, no edema Gastrointestinal (Abdomen) Inspection/Auscultation: normal bowel sounds Percussion/Palpation: abdomen soft; abdomen nontender, no guarding and abdomen not rigid Skin no rashes, warm and dry (surgical dressing not removed but no surrounding cellulitis; wound vac plac) + rash (tinea cruris in groin), + ulcer (wound vac in place) and + erythema (macular rash improved on back and legs) Neurologic moves all extremities and awake; not confused Psychiatric A+Ox3, euthymic affect Discharge Data Allergies Allergy/AdvReac Type Severity Reaction Status Date / Time amoxicillin [From Augmentin] Allergy Intermediate face Verified 11/17/21 15:16 swelling atorvastatin [From Lipitor] Allergy Intermediate Rash Verified 11/17/21 15:16 clavulanic acid Allergy Intermediate face Verified 11/17/21 15:16 [From Augmentin] swelling empagliflozin Allergy Intermediate Rash Verified 11/17/21 15:16 [From Jardiance] latex Allergy Mild Rash Verified 11/17/21 15:16 ciprofloxacin [From Cipro] AdvReac Severe Gastrointestinal Verified 11/17/21 15:16 Upset aspirin AdvReac Intermediate epistaxis Verified 11/17/21 15:16 Consultations 11/17/21 17:01 ED Decision to Admit Stat 11/17/21 17:02 ED Decision to Admit Stat 11/17/21 17:24 Consult Podiatry Routine 11/18/21 18:40 Consult Infectious Diseases Routine 11/19/21 13:28 Consult Health Information Management Routine 11/21/21 16:55 Consult Vascular Surgery Routine Procedures Performed Operation Date: 11/17/21 18:05 Actual Procedures p Incision and Drainage of Left Foot - Kleber Hall DPM, MS Operation Date: 11/19/21 07:30 Actual Procedures p Excision of Bone Left Foot, Delayed Primary Closure of Left Foot(Left) - Kleber Hall DPM, MS Operation Date: 11/24/21 08:00 Actual Procedures p Left Lower Extremity Arteriogram, Mechanical Closure, Moderate Sedation [id number] 0844(Right) - Davi Verde MD Ordered Studies 11/19/21 07:24 FL foot LT 2V Routine 11/24/21 07:17 EV angio LE LT Routine US EV guide vascular access Routine Diabetes Follow up Diabetes Follow-up Needed for HgbA1c >9% Hospital Course (1) Diabetic infection of left foot: Diabetic foot infection with osteo- Patient seen and previously treated at [facility]. Pending records. Reportedly was discharged on Keflex with continued worsening of his infection Worsening DFI with osteo-, allergies to Augmentin. Placed on Rocephin, Flagyl, and Vanco empirically. Switched ceftriaxone to cefepime 11/19 for better OM coverage. blood cultures negative @ 24 hours -Wound culture left foot growing Proteus mirabilis and Prevotella - ID recommended ceftriaxone +metronidazole. completed change. I&D performed on 11/17 and 11/[address] Hall. -US RLE arterial Doppler from [facility] - significant flow velocity gradient noted between popliteal artery and posterior tibialis artery. This could indicate stenosis. -CT angiogram with apparent occlusion of the right distal superficial femoral artery/proximal popliteal artery of indeterminate age. -arteriogram was negative. No intervention required. wound vac switched on day of discharge. PICC line in place prior to discharge, consent obtained. Patient agreeable to discharge. Antibiotics noted on discharge instructions. (2) Erythematous rash: Improving. Suspect related to bed sheets as spares areas on his back with the gown. Recommend wearing t-shirt in bed and cover areas exposed to bed sheets as much. (3) Diabetes mellitus type 2 with complications, uncontrolled: Type 2 diabetes mellitus On liraglutide and Takes lantus 18u + 7-10u aspart TID at home Hold home Victoza Consult pharmacy for glycemic control - glucose control adequate resume home meds at discharge. (4) HLD (hyperlipidemia): - Continue crestor 40mg daily (5) HTN (hypertension): -Continue to hold ACEi due to relatively low BP (6) Legal blindness of left eye, as defined in [place]: Congenital diminished acuity in left eye since , does react to light. No acute intervention for this. This is not due to diabetic retinopathy. (7) Tinea cruris: Nystatin powder BID DVT prophylaxis: SCDs, Lovenox 40mg SQ daily Diet: T2DM Disposition: Continue on med/surg pending arteriogram on Saturday. CODE STATUS: DNR/DNI, confirmed with patient. Surrogate decision maker would be his Total Time Total Time Spent Total Time Spent (In Minutes): 32 Discharge Plan Discharge Items Patient Disposition: Home - Home Health Services Reason For Visit: DFI Discharge Diagnosis: diabetic foot infection Activity: Resume your previous activity Non-emergency contact: Primary Care Provider Call non-emergency contact if: you have any medication questions Follow-up/Referrals: Davi Verde MD [Physician] - (FRANCESCA FROM DR SIMONI'S WILL CALL PATIENT WITH A HOSPITAL F/U.) Sherman Waldron D.O. [Primary Care Provider] - (IRIS Hernandez at the office stated she will contact the patient and [facility] follow up.) Sam Fonseca PA-C [Physician Hydraulic Specialist] - 02/12/22 1:00 pm ([facility], new patient appointment. This is the first available. Please call the office at the listed number if you need to reschedule.) Diet: Regular Addtl Attending Provider Instructions: Continue home health with wound vac changes Saturday and Saturday. Continue wound care and followup with Dr. Hall and PCP. Pending Studies at Discharge: No Stand-Alone Forms: My [facility], Smoking Cessation Medications and DC Order Prescriptions: New acetaminophen 325 mg Tablet 650 mg PO Q4H PRN (Reason: pain) Qty: 30 RF: 0 nystatin [Nystop] 100,000 unit/gram Powder 1 applic EXT BID 10 Days Qty: 30 RF: 0 ceftriaxone 2 gram recon soln 2 g IV DAILY Qty: 33 RF: 0 metronidazole 500 mg tablet 500 mg PO Q8H 28 Days Qty: 84 RF: 0 Continued insulin aspart U-100 100 unit/mL (3 mL) insulin pen 7 - 10 unit SUBCUT TIDM RF: 0 Victoza 2-Ozzy 0.6 mg/0.1 mL (18 mg/3 mL) pen injector 1.2 mg SUBCUT DAILY RF: 0 rosuvastatin [Crestor] 40 mg Tablet 40 mg PO QAM RF: 0 Lantus Solostar U-100 Insulin 100 unit/mL (3 mL) insulin pen 18 unit SUBCUT DAILY RF: 0 Discontinued benazepril 10 mg tablet 10 mg PO DAILY RF: 0 cephalexin 500 mg capsule 500 mg PO QID RF: 0 Discharge Orders: Discharge Order (Routine); Ordered 11/27/21 Ordered By: Prince Gan/Other Patient Handouts: High Blood Sugar (Hyperglycemia), Managing Type 2 Diabetes, Special Foot Care for Diabetes Admission Data Admit Date/Time: 11/17/21 17:51 Attending Provider: Prince Meier Admit Provider: Oral Chauhan Primary Care Provider: Sherman Waldron Other Providers: Oral Chauhan ; Kleber Hall ; Tomy Humphrey ; Richy Ruiz ; Sav Simons I. ; Christiano Tabor II ; Yaneli Almeida ; Shin Moran ; Sherman Diaz ; Davi Verde Other Interventions: Discharge Summary Assessment (RN) Last Done: 11/27/21 15:47 Coding Level of Care Code D/C DAY MANAGEMENT >30 MINS Diagnoses Diabetic infection of left foot E11.628; L08.9 Erythematous rash R21 Diabetes mellitus type 2 with complications, uncontrolled HLD (hyperlipidemia) E78.5 HTN (hypertension) I10 Legal blindness of left eye, as defined in [place] H54.8 Tinea cruris B35.6
== END 2021-11-27 17:54 | disposition home health service (06) | DRG 629 ==
LOC: ED 14:43 → ASU 17:50 → 3E 17:51 → SUATTDRO 17:51